=== PATIENT | male | born 1940 | race Two or more races ===

== ENCOUNTER 2021-07-16 16:06 | Inpatient (IN) | payer MEDICAID, OTHER ==
[~2021-07-16] VITALS: Ht 165.1 cm; Wt 56.4 kg
[2021-07-16] MEDS ORDERED: ADENOSINE 6 MG/2 ML INJ IV ONE (16:45)
[2021-07-16] MEDS ORDERED: SODIUM CHLORIDE 0.9% 1,000 ML IV ONE ×2 (16:45→22:00)
[2021-07-16] MEDS ORDERED: GLIP10TA9 PO (16:46)
[2021-07-16] MEDS ORDERED: ATOR40TA52 PO (16:46)
[2021-07-16] MEDS ORDERED: GABA100C9 PO (16:46)
[2021-07-16] MEDS ORDERED: METO25TA5 PO (16:46)
[2021-07-16] MEDS ORDERED: LISI20TA28 PO (16:46)
[2021-07-16] MEDS ORDERED: LORA-622 PO (16:46)
[2021-07-16] MEDS ORDERED: METF-372 PO (16:46)
[2021-07-16] MEDS ORDERED: CLOP75TA28 PO (16:46)
[2021-07-16 17:05] LABS: Basophils # (auto) 0 10 ^3/uL (0-0.2); Basophils % (auto) 1.1 % (0.0-2.0); Eosinophils # (auto) 0 10 ^3/uL (0-0.8); Hematocrit 48.6 % (41.0-53.0); Hemoglobin 16.7 g/dL (13.5-17.5); Lymphocytes # (auto) 1.3 10 ^3/uL (0.4-5.4); Lymphocytes % (auto) 34.8 % (10.0-50.0); Mean Corpuscular Hemoglobin 30.8 pg (28.0-32.0); Mean Corpuscular Hgb Conc. 34.3 g/dL (32.0-36.0); Mean Corpuscular Volume 89.8 fL (80.0-100.0); Monocytes # (auto) 0.4 10 ^3/uL (0-1.3); Neutrophils % (auto) 54.1 % (37.0-80.0); Nucleated Red Blood Cells % 0.4 %; Red Blood Cells 5.41 10^6/uL (4.5-5.90); Red Cell Distribution Width 13.9 % (11.8-14.3); White Blood Cell 3.8 10^3/uL (4.4-10.8)
[2021-07-16 17:06] LABS: Albumin 3.3 g/dL (3.4-5.0); BUN/Creatinine Ratio 21.2; Calcium 8.6 mg/dL (8.5-10.1); Magnesium 2.1 mg/dL (1.6-2.6)
[2021-07-16 17:09] LABS: Bilirubin, Total 0.8 mg/dL (0.2-1.0); Total Protein 7.3 g/dL (6.4-8.2)
[2021-07-16 17:13] LABS: Potassium 5.6 mmol/L (3.5-5.1)
[2021-07-16] MEDS ORDERED: InsuLIN REG 1unit/0.01ml Soln (100units/ml) IV ONE (22:00)
[2021-07-16] MEDS ORDERED: ALBUTEROL SULF 2.5 MG/0.5ML(0.5%) NEB SOLN NEB ONE (22:00)
[2021-07-16] MEDS ORDERED: HYDROcodone-ACET 5/325MG TAB PO PRN (22:00)
[2021-07-16] MEDS ORDERED: ACETAMINOPHEN 325 MG TAB PO PRN (22:00)
[2021-07-16] MEDS ORDERED: hydrALAZINE HCL 10 MG TAB PO PRN (22:00)
[2021-07-16] MEDS ORDERED: DEXTROSE (50%) 50ML SYRG IV ONE (22:00)
[2021-07-16] MEDS ORDERED: SODIUM BICARBONATE 8.4% INJ 50ML SYRINGE IV ONE (22:00)
[2021-07-16] MEDS: ASCORBIC ACID 500 MG TAB PO SCH (22:00)
[2021-07-16] MEDS ORDERED: ONDANSETRON HCL 4 MG/2 ML VIAL IV PRN (22:00)
[2021-07-16] MEDS ORDERED: ALBUTEROL SULF 2.5 MG/0.5ML(0.5%) NEB SOLN ONE (22:28)
[2021-07-17] MEDS ORDERED: ADENOSINE 6 MG/2 ML INJ IV ONE ×2 (01:15→01:34)
[2021-07-17 02:41] LABS: Potassium 4.3 mmol/L (3.5-5.1)
[2021-07-17] MEDS ORDERED: dilTIAZem 125mg/125ml BAG KIT 125 ML IV SCH (03:15)
[2021-07-17] MEDS ORDERED: dilTIAZem 25 MG/5 ML VIAL IV ONE ×2 (03:15→03:16)
[2021-07-17] MEDS ORDERED: DIGOXIN (250MCG/ML) 2 ML AMPULE IV ONE ×2 (03:15→04:15)
[2021-07-17] MEDS ORDERED: DIGOXIN (250MCG/ML) 2 ML AMPULE ONE (03:16)
[2021-07-17 03:18] LABS: Urine Bacteria NONE SEEN /hpf (None Seen); Urine Blood 1+ /uL (Negative); Urine Specific Gravity 1.021 (1.001-1.035); Urine WBC 2 /hpf (0 - 3)
[2021-07-17] MEDS: cefTRIAXone 1GM/50ML D5W 50 ML IV SCH (04:10)
[2021-07-17] MEDS: AZITHROMYCIN 500MG/ 250ML 250 ML IV SCH (04:27)
[2021-07-17 05:09] LABS: Lactic Acid w/Reflex 3.5 mmol/L (0.4-2.0)
[2021-07-17 05:17] LABS: Calcium 8.1 mg/dL (8.5-10.1); Potassium 4.5 mmol/L (3.5-5.1)
[2021-07-17 05:23] LABS: BUN/Creatinine Ratio 19.5; Bilirubin, Total 0.7 mg/dL (0.2-1.0); Total Protein 7.8 g/dL (6.4-8.2)
[2021-07-17] MEDS ORDERED: ENOXAPARIN SOD 40 MG/0.4 ML SYRINGE SC ONE (08:30)
[2021-07-17] MEDS ORDERED: REMDESIVIR PER PHARMACY 0 ML IV SCH (08:30)
[2021-07-17] MEDS ORDERED: ENOXAPARIN SOD 40 MG/0.4 ML SYRINGE SC SCH (10:00)
[2021-07-17] MEDS: ZINC SULFATE 220mg CAP or TAB PO SCH (10:22)
[2021-07-17] MEDS: DexAMETHasone SOD PHOS 10MG/1ML VIAL INJ IV SCH (10:22)
[2021-07-17] MEDS: dilTIAZem 120MG ER CAP PO SCH (10:22)
[2021-07-17] MEDS: CHOLECALCIFEROL (VITD3) 2,000 UNIT CAP/TAB PO SCH (10:23)
[2021-07-17] MEDS: FAMOTIDINE 20 MG TAB PO SCH (10:23)
[2021-07-17] MEDS: DIGOXIN 0.125 MG TAB PO SCH (10:23)
[2021-07-17] MEDS: ASCORBIC ACID 500 MG TAB PO SCH ×2 (10:23→22:29)
[2021-07-17] MEDS ORDERED: REMDESIVIR 200 MG in NS 210ml LOADING DOSE ADULT IV ONE (15:00)
[2021-07-17] MEDS ORDERED: DEXTROSE (50%) 50ML SYRG IV PRN (18:15)
[2021-07-17] MEDS: ACCU-CHEK COMFORT CURVE STRIP VI SCH (18:43)
[2021-07-17] MEDS: InsuLIN REG 1unit/0.01ml Soln (100units/ml) SC SCH (18:43)
[2021-07-17] MEDS: MORPHINE SULFATE INJECTION 2 MG/ML SYRG IV PRN (21:10)
[2021-07-17 22:00] VITALS: BP 135/67
[2021-07-18] MEDS ORDERED: InsuLIN REG 1unit/0.01ml Soln (100units/ml) SC SCH
[2021-07-18] MEDS ORDERED: ACCU-CHEK COMFORT CURVE STRIP VI SCH
[2021-07-18] MEDS: InsuLIN REG 1unit/0.01ml Soln (100units/ml) SC SCH ×4 (00:26→18:28)
[2021-07-18] MEDS: ACCU-CHEK COMFORT CURVE STRIP VI SCH ×4 (00:27→18:26)
[2021-07-18 05:00] VITALS: BP 125/69
[2021-07-18 09:00] VITALS: BP 121/65
[2021-07-18] MEDS: ENOXAPARIN SOD 40 MG/0.4 ML SYRINGE SC SCH (09:47)
[2021-07-18] MEDS: cefTRIAXone 1GM/50ML D5W 50 ML IV SCH (09:47)
[2021-07-18] MEDS: ZINC SULFATE 220mg CAP or TAB PO SCH (09:48)
[2021-07-18] MEDS: DexAMETHasone SOD PHOS 10MG/1ML VIAL INJ IV SCH (09:48)
[2021-07-18] MEDS: FAMOTIDINE 20 MG TAB PO SCH (09:48)
[2021-07-18] MEDS: CHOLECALCIFEROL (VITD3) 2,000 UNIT CAP/TAB PO SCH (09:48)
[2021-07-18] MEDS: ASCORBIC ACID 500 MG TAB PO SCH ×2 (09:49→22:01)
[2021-07-18] MEDS: dilTIAZem 120MG ER CAP PO SCH (09:50)
[2021-07-18] MEDS: MORPHINE SULFATE INJECTION 2 MG/ML SYRG IV PRN ×2 (09:53→18:40)
[2021-07-18 10:31] LABS: Albumin 2.6 g/dL (3.4-5.0); Calcium 7.9 mg/dL (8.5-10.1); Potassium 4.3 mmol/L (3.5-5.1)
[2021-07-18 10:35] LABS: BUN/Creatinine Ratio 29.8; Bilirubin, Total 0.6 mg/dL (0.2-1.0); Total Protein 6.4 g/dL (6.4-8.2)
[2021-07-18] MEDS: AZITHROMYCIN 500MG/ 250ML 250 ML IV SCH (10:44)
[2021-07-18 12:30] VITALS: BP 104/60
[2021-07-18] MEDS ORDERED: REMDESIVIR 100mg 100 MG in SODIUM CHL 0.9% 230 ML IV SCH (15:00)
[2021-07-18 17:00] VITALS: BP 115/57
[2021-07-18 22:00] VITALS: BP 137/86
[2021-07-18] MEDS: INSULIN LANTUS (GLARGINE) 1 /0.01ml (100units/ml) SC SCH (22:07)
[2021-07-19] MEDS: ACCU-CHEK COMFORT CURVE STRIP VI SCH ×4 (00:20→18:30)
[2021-07-19] MEDS: InsuLIN REG 1unit/0.01ml Soln (100units/ml) SC SCH ×4 (00:23→18:52)
[2021-07-19 05:00] VITALS: BP 142/60
[2021-07-19] MEDS: glipiZIDE 5 MG TAB PO SCH (06:19)
[2021-07-19 07:38] LABS: Potassium 4.2 mmol/L (3.5-5.1)
[2021-07-19 08:02] LABS: Albumin 2.7 g/dL (3.4-5.0); BUN/Creatinine Ratio 41.6; Bilirubin, Total 0.8 mg/dL (0.2-1.0); Total Protein 6.3 g/dL (6.4-8.2)
[2021-07-19 09:00] VITALS: BP 133/61
[2021-07-19] MEDS: cefTRIAXone 1GM/50ML D5W 50 ML IV SCH (11:08)
[2021-07-19] MEDS: DexAMETHasone SOD PHOS 10MG/1ML VIAL INJ IV SCH (11:08)
[2021-07-19] MEDS: CHOLECALCIFEROL (VITD3) 2,000 UNIT CAP/TAB PO SCH (11:09)
[2021-07-19] MEDS: ASCORBIC ACID 500 MG TAB PO SCH ×2 (11:09→22:41)
[2021-07-19] MEDS: ZINC SULFATE 220mg CAP or TAB PO SCH (11:09)
[2021-07-19] MEDS: dilTIAZem 120MG ER CAP PO SCH (11:11)
[2021-07-19] MEDS: ENOXAPARIN SOD 40 MG/0.4 ML SYRINGE SC SCH (11:12)
[2021-07-19] MEDS: FAMOTIDINE 20 MG TAB PO SCH (11:12)
[2021-07-19] MEDS: DIGOXIN 0.125 MG TAB PO SCH (11:12)
[2021-07-19] MEDS: AZITHROMYCIN 500MG/ 250ML 250 ML IV SCH (12:40)
[2021-07-19 13:00] VITALS: BP 145/76
[2021-07-19 14:51] LABS: Lactic Acid w/Reflex 2.6 mmol/L (0.4-2.0)
[2021-07-19 17:00] VITALS: BP 140/73
[2021-07-19 22:00] VITALS: BP 143/72
[2021-07-19] MEDS: INSULIN LANTUS (GLARGINE) 1 /0.01ml (100units/ml) SC SCH (22:42)
[2021-07-20] MEDS: ACCU-CHEK COMFORT CURVE STRIP VI SCH ×5 (00:25→23:35)
[2021-07-20] MEDS: InsuLIN REG 1unit/0.01ml Soln (100units/ml) SC SCH ×5 (00:27→23:35)
[2021-07-20 05:00] VITALS: BP 145/71
[2021-07-20 06:25] LABS: Potassium 3.9 mmol/L (3.5-5.1)
[2021-07-20] MEDS: glipiZIDE 5 MG TAB PO SCH (06:31)
[2021-07-20 06:32] LABS: BUN/Creatinine Ratio 36.3; Bilirubin, Total 0.7 mg/dL (0.2-1.0); Calcium 8.7 mg/dL (8.5-10.1); Total Protein 6.8 g/dL (6.4-8.2)
[2021-07-20 09:00] VITALS: BP 142/59
[2021-07-20] MEDS: FAMOTIDINE 20 MG TAB PO SCH (09:16)
[2021-07-20] MEDS: cefTRIAXone 1GM/50ML D5W 50 ML IV SCH (09:16)
[2021-07-20] MEDS: ENOXAPARIN SOD 40 MG/0.4 ML SYRINGE SC SCH (09:16)
[2021-07-20] MEDS: CHOLECALCIFEROL (VITD3) 2,000 UNIT CAP/TAB PO SCH (09:18)
[2021-07-20] MEDS: ZINC SULFATE 220mg CAP or TAB PO SCH (09:18)
[2021-07-20] MEDS: ASCORBIC ACID 500 MG TAB PO SCH ×2 (09:18→22:38)
[2021-07-20] MEDS: dilTIAZem 120MG ER CAP PO SCH (09:19)
[2021-07-20] MEDS: DexAMETHasone 4 MG TAB PO SCH (09:20)
[2021-07-20] MEDS: AZITHROMYCIN 500MG/ 250ML 250 ML IV SCH (12:04)
[2021-07-20 12:47] VITALS: BP 137/58
[2021-07-20 17:00] VITALS: BP 148/62
[2021-07-20 22:00] VITALS: BP 147/64
[2021-07-20] MEDS: INSULIN LANTUS (GLARGINE) 1 /0.01ml (100units/ml) SC SCH (23:34)
[2021-07-21 05:00] VITALS: BP 133/62
[2021-07-21] MEDS: ACCU-CHEK COMFORT CURVE STRIP VI SCH ×4 (06:22→23:13)
[2021-07-21] MEDS: InsuLIN REG 1unit/0.01ml Soln (100units/ml) SC SCH ×4 (06:23→23:14)
[2021-07-21] MEDS: glipiZIDE 5 MG TAB PO SCH (06:25)
[2021-07-21 06:32] LABS: Basophils # (auto) 0 10 ^3/uL (0-0.2); Basophils % (auto) 0.1 % (0.0-2.0); Eosinophils # (auto) 0 10 ^3/uL (0-0.8); Hematocrit 46.6 % (41.0-53.0); Lymphocytes # (auto) 0.2 10 ^3/uL (0.4-5.4); Lymphocytes % (auto) 3.7 % (10.0-50.0); Mean Corpuscular Hemoglobin 30.5 pg (28.0-32.0); Mean Corpuscular Hgb Conc. 34.4 g/dL (32.0-36.0); Mean Corpuscular Volume 88.7 fL (80.0-100.0); Monocytes # (auto) 0.5 10 ^3/uL (0-1.3); Monocytes % (auto) 8.9 % (0.0-12.0); Neutrophils % (auto) 87.3 % (37.0-80.0); Nucleated Red Blood Cells % 0.2 %; Red Blood Cells 5.25 10^6/uL (4.5-5.90); Red Cell Distribution Width 14.1 % (11.8-14.3); White Blood Cell 5.7 10^3/uL (4.4-10.8)
[2021-07-21 06:49] LABS: Potassium 3.7 mmol/L (3.5-5.1)
[2021-07-21 06:56] LABS: Albumin 2.9 g/dL (3.4-5.0); BUN/Creatinine Ratio 35.8; Bilirubin, Total 0.8 mg/dL (0.2-1.0); Calcium 8.3 mg/dL (8.5-10.1); Magnesium 3.4 mg/dL (1.6-2.6); Total Protein 6.4 g/dL (6.4-8.2)
[2021-07-21 09:00] VITALS: BP 150/84
[2021-07-21] MEDS: ENOXAPARIN SOD 40 MG/0.4 ML SYRINGE SC SCH (09:51)
[2021-07-21] MEDS: cefTRIAXone 1GM/50ML D5W 50 ML IV SCH (09:51)
[2021-07-21] MEDS: dilTIAZem 120MG ER CAP PO SCH (09:53)
[2021-07-21] MEDS: DexAMETHasone 4 MG TAB PO SCH (09:54)
[2021-07-21] MEDS: CHOLECALCIFEROL (VITD3) 2,000 UNIT CAP/TAB PO SCH (09:54)
[2021-07-21] MEDS: ASCORBIC ACID 500 MG TAB PO SCH ×2 (09:54→21:21)
[2021-07-21] MEDS: ZINC SULFATE 220mg CAP or TAB PO SCH (09:54)
[2021-07-21] MEDS: FAMOTIDINE 20 MG TAB PO SCH (09:54)
[2021-07-21] MEDS: AZITHROMYCIN 500MG/ 250ML 250 ML IV SCH (12:30)
[2021-07-21 13:00] VITALS: BP 143/84
[2021-07-21 22:00] VITALS: BP 152/74
[2021-07-21] MEDS: INSULIN LANTUS (GLARGINE) 1 /0.01ml (100units/ml) SC SCH (23:14)
[2021-07-22 05:00] VITALS: BP 149/73
[2021-07-22] MEDS: InsuLIN REG 1unit/0.01ml Soln (100units/ml) SC SCH ×2 (06:41→12:25)
[2021-07-22] MEDS: ACCU-CHEK COMFORT CURVE STRIP VI SCH ×2 (06:41→12:21)
[2021-07-22] MEDS: glipiZIDE 5 MG TAB PO SCH (06:41)
[2021-07-22 09:00] VITALS: BP 118/64
[2021-07-22] MEDS: cefTRIAXone 1GM/50ML D5W 50 ML IV SCH (09:48)
[2021-07-22] MEDS: ASCORBIC ACID 500 MG TAB PO SCH (09:51)
[2021-07-22] MEDS: dilTIAZem 120MG ER CAP PO SCH (09:51)
[2021-07-22] MEDS: ENOXAPARIN SOD 40 MG/0.4 ML SYRINGE SC SCH (09:51)
[2021-07-22] MEDS: DexAMETHasone 4 MG TAB PO SCH (09:52)
[2021-07-22] MEDS: ZINC SULFATE 220mg CAP or TAB PO SCH (09:52)
[2021-07-22] MEDS: FAMOTIDINE 20 MG TAB PO SCH (09:52)
[2021-07-22] MEDS: DIGOXIN 0.125 MG TAB PO SCH (09:56)
[2021-07-22] MEDS: CHOLECALCIFEROL (VITD3) 2,000 UNIT CAP/TAB PO SCH (10:04)
[2021-07-22 12:48] VITALS: BP 152/70
[2021-07-22 14:30] VITALS: BP 152/70
== END 2021-07-22 17:00 | disposition home health service (06) | DRG 137 ==
LOC: ER 16:06 → TELE 21:55 → TELE-EAST 07-17 20:26
PROVIDERS: ADMIT Nurse Practitioner Family; ATTEND Internal Medicine
PROC: XW033E5 Introduction of Remdesivir Anti-infective into Peripheral Vein, Percutaneous Approach, New Technology Group 5 (ICD-10-PCS; principal; 2021-07-17)
DX: U07.1 COVID-19 (principal); J96.01 Acute respiratory failure with hypoxia; J12.82 Pneumonia due to coronavirus disease 2019; G93.41 Metabolic encephalopathy; G93.1 Anoxic brain damage, not elsewhere classified; I47.1 Supraventricular tachycardia; E11.65 Type 2 diabetes mellitus with hyperglycemia; E87.5 Hyperkalemia; I10 Essential (primary) hypertension; J98.11 Atelectasis; N17.9 Acute kidney failure, unspecified; Z79.02 Long term (current) use of antithrombotics/antiplatelets; I25.10 Atherosclerotic heart disease of native coronary artery without angina pectoris; Z82.49 Family history of ischemic heart disease and other diseases of the circulatory system; Z83.3 Family history of diabetes mellitus; Z95.1 Presence of aortocoronary bypass graft; Z79.899 Other long term (current) drug therapy; Z23 Encounter for immunization
CPT/HCPCS: 36415; 36600; 70450; 71045; 80053; 81001; 82607; 82728; 82746; 82805; 82962; 83605; 83735; 84132; 84443; 84484; 85025; 85379; 87040; 87426; 93005; 93306; 94640; 96361; 96365; 96375; 97110; 97530; G0378; J0153; J0696; J1100; J1815

== ENCOUNTER 2021-07-25 09:56 | Inpatient (IN) | payer MEDICAID ==
[~2021-07-25] VITALS: Ht 162.6 cm; Wt 58.0 kg
[~2021-07-25 09:56] MED LIST: ATOR40TA52 PO; CLOP75TA28 PO; GABA100C9 PO; GLIP10TA9 PO; LISI20TA28 PO; LORA-622 PO; METO25TA5 PO
[2021-07-25 11:16] LABS: Basophils # (auto) 0 10 ^3/uL (0-0.2); Basophils % (auto) 0.1 % (0.0-2.0); Eosinophils # (auto) 0 10 ^3/uL (0-0.8); Eosinophils % (auto) 0.2 % (0.0-7.0); Hematocrit 50.1 % (41.0-53.0); Hemoglobin 17.1 g/dL (13.5-17.5); Lymphocytes # (auto) 0.5 10 ^3/uL (0.4-5.4); Mean Corpuscular Hemoglobin 31.7 pg (28.0-32.0); Mean Corpuscular Hgb Conc. 34.1 g/dL (32.0-36.0); Mean Corpuscular Volume 92.9 fL (80.0-100.0); Monocytes # (auto) 0.6 10 ^3/uL (0-1.3); Monocytes % (auto) 7.8 % (0.0-12.0); Neutrophils # (auto) 6.6 10 ^3/uL (1.6-8.6); Neutrophils % (auto) 84.9 % (37.0-80.0); Nucleated Red Blood Cells % 0.2 %; Red Blood Cells 5.39 10^6/uL (4.5-5.90); Red Cell Distribution Width 13.5 % (11.8-14.3); White Blood Cell 7.8 10^3/uL (4.4-10.8)
[2021-07-25 11:32] LABS: Potassium 5.1 mmol/L (3.5-5.1)
[2021-07-25 11:36] LABS: Albumin 2.6 g/dL (3.4-5.0); BUN/Creatinine Ratio 21.2; Calcium 8.8 mg/dL (8.5-10.1); Magnesium 2.6 mg/dL (1.6-2.6)
[2021-07-25 11:41] LABS: Bilirubin, Total 1.2 mg/dL (0.2-1.0); Lactic Acid w/Reflex 3.6 mmol/L (0.4-2.0)
[2021-07-25 14:09] LABS: Urine Bacteria NONE SEEN /hpf (None Seen); Urine Blood Negative /uL (Negative); Urine Hyaline Cast FEW /lpf (0 - 2); Urine Specific Gravity 1.023 (1.001-1.035); Urine WBC 2 /hpf (0 - 3)
[2021-07-25] MEDS ORDERED: HYDROcodone-ACET 5/325MG TAB PO PRN (16:15)
[2021-07-25] MEDS ORDERED: ACETAMINOPHEN 325 MG TAB PO PRN ×2 (16:15)
[2021-07-25] MEDS ORDERED: ONDANSETRON HCL 4 MG/2 ML VIAL IV PRN (16:15)
[2021-07-25] MEDS ORDERED: DIGOXIN (250MCG/ML) 2 ML AMPULE IV PRN (16:15)
[2021-07-25] MEDS ORDERED: MORPHINE SULFATE INJECTION 2 MG/ML SYRG IV PRN (16:15)
[2021-07-25] MEDS ORDERED: NITROGLYCERIN 0.4 MG SL TAB SL PRN (16:15)
[2021-07-25] MEDS: ENOXAPARIN SOD 60 MG/0.6 ML SYRINGE SC SCH (17:00)
[2021-07-25] MEDS ORDERED: BUDESONIDE (INHALATION) 0.5 MG/2 ML NEB NEB SCH (22:00)
[2021-07-25] MEDS: ATORVASTATIN 20 MG TAB PO SCH (22:32)
[2021-07-25] MEDS: DOXYCYCLINE 100 MG TAB/CAP PO SCH (22:33)
[2021-07-25] MEDS: METOPROLOL TARTRATE 25 MG TAB PO SCH (22:33)
[2021-07-26 00:03] VITALS: BP 141/90
[2021-07-26] MEDS ORDERED: DEXTROSE (50%) 50ML SYRG IV PRN (00:45)
[2021-07-26] MEDS ORDERED: InsuLIN REG 1unit/0.01ml Soln (100units/ml) SC ONE (01:45)
[2021-07-26 05:00] VITALS: BP 140/74
[2021-07-26] MEDS: ENOXAPARIN SOD 60 MG/0.6 ML SYRINGE SC SCH ×2 (05:00→17:00)
[2021-07-26] MEDS: ACCU-CHEK COMFORT CURVE STRIP VI SCH ×4 (06:18→22:05)
[2021-07-26] MEDS: InsuLIN REG 1unit/0.01ml Soln (100units/ml) SC SCH ×5 (06:20→22:28)
[2021-07-26 06:58] LABS: Basophils # (auto) 0 10 ^3/uL (0-0.2); Eosinophils # (auto) 0 10 ^3/uL (0-0.8); Hematocrit 46.9 % (41.0-53.0); Hemoglobin 16.4 g/dL (13.5-17.5); Lymphocytes # (auto) 0.6 10 ^3/uL (0.4-5.4); Lymphocytes % (auto) 13.1 % (10.0-50.0); Mean Corpuscular Hemoglobin 32.3 pg (28.0-32.0); Mean Corpuscular Volume 92.3 fL (80.0-100.0); Monocytes # (auto) 0.5 10 ^3/uL (0-1.3); Monocytes % (auto) 10.5 % (0.0-12.0); Neutrophils # (auto) 3.8 10 ^3/uL (1.6-8.6); Neutrophils % (auto) 76.4 % (37.0-80.0); Nucleated Red Blood Cells % 0.4 %; Red Blood Cells 5.08 10^6/uL (4.5-5.90); Red Cell Distribution Width 13.8 % (11.8-14.3); White Blood Cell 4.9 10^3/uL (4.4-10.8)
[2021-07-26 07:08] LABS: INR 1.03 (0.9-1.15); Partial Thromboplastin Time 29.6 sec (23.6-33.0)
[2021-07-26 07:21] LABS: Calcium 8.4 mg/dL (8.5-10.1); Potassium 4.5 mmol/L (3.5-5.1)
[2021-07-26 07:32] LABS: BUN/Creatinine Ratio 34.1
[2021-07-26 09:00] VITALS: BP 121/77
[2021-07-26] MEDS: BUDESONIDE (INHALATION) 180 MCG IH IN SCH ×2 (10:00→19:53)
[2021-07-26] MEDS: METOPROLOL TARTRATE 25 MG TAB PO SCH ×2 (12:07→22:00)
[2021-07-26] MEDS: ASPirin 81 mg TAB PO SCH (12:07)
[2021-07-26] MEDS: FAMOTIDINE 20 MG TAB PO SCH (12:09)
[2021-07-26] MEDS: DOXYCYCLINE 100 MG TAB/CAP PO SCH ×2 (12:09→22:26)
[2021-07-26 13:00] VITALS: BP 138/81
[2021-07-26 17:00] VITALS: BP 107/64
[2021-07-26 22:03] VITALS: BP 100/58
[2021-07-26] MEDS: ATORVASTATIN 20 MG TAB PO SCH (22:26)
[2021-07-26] MEDS: AMIODARONE HCL 200 MG TAB PO SCH (22:26)
[2021-07-27 04:43] VITALS: BP 107/53
[2021-07-27] MEDS: ENOXAPARIN SOD 60 MG/0.6 ML SYRINGE SC SCH ×2 (05:00→17:00)
[2021-07-27] MEDS: ACCU-CHEK COMFORT CURVE STRIP VI SCH ×4 (06:20→22:36)
[2021-07-27] MEDS: InsuLIN REG 1unit/0.01ml Soln (100units/ml) SC SCH ×4 (06:22→22:37)
[2021-07-27 09:00] VITALS: BP 132/65
[2021-07-27] MEDS: BUDESONIDE (INHALATION) 180 MCG IH IN SCH ×2 (10:04→19:59)
[2021-07-27] MEDS: DOXYCYCLINE 100 MG TAB/CAP PO SCH ×2 (11:08→22:35)
[2021-07-27] MEDS: AMIODARONE HCL 200 MG TAB PO SCH ×2 (11:08→22:33)
[2021-07-27] MEDS: ASPirin 81 mg TAB PO SCH (11:08)
[2021-07-27] MEDS: FAMOTIDINE 20 MG TAB PO SCH (11:08)
[2021-07-27] MEDS: METOPROLOL TARTRATE 25 MG TAB PO SCH ×2 (11:08→22:35)
[2021-07-27 13:00] VITALS: BP 118/75
[2021-07-27] MEDS: D5W/LACTATED RINGERS 1,000 ML IV SCH (15:04)
[2021-07-27 17:00] VITALS: BP 118/63
[2021-07-27 22:00] VITALS: BP 124/66
[2021-07-27] MEDS: ATORVASTATIN 20 MG TAB PO SCH (22:34)
[2021-07-28 04:39] VITALS: BP 110/65
[2021-07-28] MEDS: ENOXAPARIN SOD 60 MG/0.6 ML SYRINGE SC SCH ×2 (04:44→17:00)
[2021-07-28] MEDS: ACCU-CHEK COMFORT CURVE STRIP VI SCH ×4 (06:21→22:05)
[2021-07-28] MEDS: InsuLIN REG 1unit/0.01ml Soln (100units/ml) SC SCH ×4 (06:31→22:06)
[2021-07-28] MEDS: BUDESONIDE (INHALATION) 180 MCG IH IN SCH ×2 (07:51→22:00)
[2021-07-28] MEDS: D5W/LACTATED RINGERS 1,000 ML IV SCH (08:45)
[2021-07-28 09:00] VITALS: BP 123/60
[2021-07-28] MEDS: AMIODARONE HCL 200 MG TAB PO SCH (10:08)
[2021-07-28] MEDS: ASPirin 81 mg TAB PO SCH (10:08)
[2021-07-28] MEDS: METOPROLOL TARTRATE 25 MG TAB PO SCH ×2 (10:08→21:49)
[2021-07-28] MEDS: FAMOTIDINE 20 MG TAB PO SCH (10:09)
[2021-07-28] MEDS: DOXYCYCLINE 100 MG TAB/CAP PO SCH ×2 (10:09→22:05)
[2021-07-28 13:00] VITALS: BP 121/61
[2021-07-28 16:58] VITALS: BP 115/54
[2021-07-28 22:00] VITALS: BP 104/65
[2021-07-28] MEDS: ATORVASTATIN 20 MG TAB PO SCH (22:05)
[2021-07-29] MEDS: D5W/LACTATED RINGERS 1,000 ML IV SCH ×2 (04:45→17:30)
[2021-07-29] MEDS: ENOXAPARIN SOD 60 MG/0.6 ML SYRINGE SC SCH ×2 (05:00→17:00)
[2021-07-29] MEDS: ACCU-CHEK COMFORT CURVE STRIP VI SCH ×4 (05:31→22:56)
[2021-07-29] MEDS: InsuLIN REG 1unit/0.01ml Soln (100units/ml) SC SCH ×4 (05:32→22:00)
[2021-07-29 08:35] VITALS: BP 131/63
[2021-07-29] MEDS: DOXYCYCLINE 100 MG TAB/CAP PO SCH ×2 (10:00→22:56)
[2021-07-29] MEDS: ASPirin 81 mg TAB PO SCH (10:00)
[2021-07-29] MEDS: BUDESONIDE (INHALATION) 180 MCG IH IN SCH ×2 (10:00→17:54)
[2021-07-29] MEDS: FAMOTIDINE 20 MG TAB PO SCH (10:00)
[2021-07-29] MEDS: METOPROLOL TARTRATE 25 MG TAB PO SCH ×2 (10:00→22:56)
[2021-07-29] MEDS ORDERED: AMIODARONE HCL 200 MG TAB PO SCH (10:00)
[2021-07-29 13:00] VITALS: BP 108/66
[2021-07-29 17:00] VITALS: BP 110/71
[2021-07-29] MEDS: ATORVASTATIN 20 MG TAB PO SCH (22:55)
[2021-07-30] MEDS: ENOXAPARIN SOD 60 MG/0.6 ML SYRINGE SC SCH (05:00)
[2021-07-30] MEDS: BUDESONIDE (INHALATION) 180 MCG IH IN SCH (06:12)
[2021-07-30] MEDS: InsuLIN REG 1unit/0.01ml Soln (100units/ml) SC SCH (07:00)
[2021-07-30] MEDS: ACCU-CHEK COMFORT CURVE STRIP VI SCH (07:19)
[2021-07-30 09:00] VITALS: BP 137/62
[2021-07-30] MEDS: ASPirin 81 mg TAB PO SCH (10:45)
[2021-07-30] MEDS ORDERED: DEXTROSE (50%) 50ML SYRG IV PRN (10:45)
[2021-07-30] MEDS: METOPROLOL TARTRATE 25 MG TAB PO SCH (10:46)
[2021-07-30] MEDS: FAMOTIDINE 20 MG TAB PO SCH (10:46)
[2021-07-30] MEDS: DOXYCYCLINE 100 MG TAB/CAP PO SCH (10:46)
[2021-07-30] MEDS ORDERED: InsuLIN REG 1unit/0.01ml Soln (100units/ml) SC SCH (11:30)
[2021-07-30] MEDS ORDERED: ACCU-CHEK COMFORT CURVE STRIP VI SCH (11:30)
[2021-07-30 13:00] VITALS: BP 125/63
[2021-07-30 14:43] VITALS: BP 125/63
== END 2021-07-30 16:20 | DRG 137 ==
LOC: ER 09:56 → EDBD 09:56 → TELE 16:14 → TELE-EAST 21:35
PROVIDERS: ADMIT Hospitalist; ATTEND Hospitalist
DX: U07.1 COVID-19 (principal); J12.82 Pneumonia due to coronavirus disease 2019; I21.A1 Myocardial infarction type 2; D69.6 Thrombocytopenia, unspecified; N17.9 Acute kidney failure, unspecified; I47.1 Supraventricular tachycardia; E11.51 Type 2 diabetes mellitus with diabetic peripheral angiopathy without gangrene; I25.10 Atherosclerotic heart disease of native coronary artery without angina pectoris; E11.65 Type 2 diabetes mellitus with hyperglycemia; E78.5 Hyperlipidemia, unspecified; I10 Essential (primary) hypertension; Z82.49 Family history of ischemic heart disease and other diseases of the circulatory system; Z83.3 Family history of diabetes mellitus; Z95.1 Presence of aortocoronary bypass graft
CPT/HCPCS: 36415; 70450; 71045; 80048; 80053; 81001; 82962; 83605; 83735; 84484; 85025; 85610; 85730; 87040; 87081; 87426; 93005; 93925; 94640; 96372; 97110; 97163; 97530; G0378; J1815

== ENCOUNTER 2021-09-10 02:37 | Inpatient (IN) | payer MEDICAID ==
[~2021-09-10] VITALS: Ht 160 cm; Wt 55.0 kg
[~2021-09-10 02:37] MED LIST changes: -CLOP75TA28 PO; -GABA100C9 PO; -LISI20TA28 PO; -LORA-622 PO
[2021-09-10] MEDS ORDERED: DEXTROSE 10% 1,000 ML IV ONE ×2 (03:00→07:15)
[2021-09-10 04:04] LABS: Basophils # (auto) 0 10 ^3/uL (0-0.2); Basophils % (auto) 0.3 % (0.0-2.0); Eosinophils # (auto) 0 10 ^3/uL (0-0.8); Eosinophils % (auto) 0.4 % (0.0-7.0); Hematocrit 40.3 % (41.0-53.0); Hemoglobin 14.2 g/dL (13.5-17.5); Lymphocytes # (auto) 0.6 10 ^3/uL (0.4-5.4); Lymphocytes % (auto) 6.2 % (10.0-50.0); Mean Corpuscular Hemoglobin 32.3 pg (28.0-32.0); Mean Corpuscular Hgb Conc. 35.3 g/dL (32.0-36.0); Mean Corpuscular Volume 91.4 fL (80.0-100.0); Monocytes % (auto) 9.2 % (0.0-12.0); Neutrophils # (auto) 8.7 10 ^3/uL (1.6-8.6); Neutrophils % (auto) 83.9 % (37.0-80.0); Red Blood Cells 4.41 10^6/uL (4.5-5.90); Red Cell Distribution Width 16.1 % (11.8-14.3); White Blood Cell 10.4 10^3/uL (4.4-10.8)
[2021-09-10 04:22] LABS: Albumin 3.3 g/dL (3.4-5.0); BUN/Creatinine Ratio 23.5; Calcium 8.7 mg/dL (8.5-10.1); Potassium 4.5 mmol/L (3.5-5.1)
[2021-09-10 04:25] LABS: Bilirubin, Total 0.5 mg/dL (0.2-1.0); Total Protein 7.3 g/dL (6.4-8.2)
[2021-09-10] MEDS ORDERED: ONDANSETRON HCL 4 MG/2 ML VIAL IV PRN (07:15)
[2021-09-10] MEDS ORDERED: ACETAMINOPHEN 325 MG TAB PO PRN (07:15)
[2021-09-10] MEDS ORDERED: MORPHINE SULFATE INJECTION 2 MG/ML SYRG IV PRN (07:15)
[2021-09-10] MEDS ORDERED: HYDROcodone-ACET 5/325MG TAB PO PRN (07:15)
[2021-09-10] MEDS: FAMOTIDINE 20 MG TAB PO SCH (10:41)
[2021-09-10] MEDS: ASPirin-EC 81 mg tab PO SCH (10:41)
[2021-09-10] MEDS: D5W/SOD CHL 0.45% 1,000 ML IV SCH (14:48)
[2021-09-10 17:00] VITALS: BP 109/29
[2021-09-10] MEDS ORDERED: GABA100C9 PO (17:11)
[2021-09-10] MEDS ORDERED: PIO30T PO (17:11)
[2021-09-10] MEDS ORDERED: SITA100T7 PO (17:11)
[2021-09-10] MEDS ORDERED: METF-929 PO (17:11)
[2021-09-10] MEDS ORDERED: ATOR20TA50 PO (17:11)
[2021-09-10 22:00] VITALS: BP 126/69
[2021-09-10] MEDS: ATORVASTATIN 20 MG TAB PO SCH (22:30)
[2021-09-11] VITALS (7 sets, daily range): BP systolic 93–126; BP diastolic 45–71
[2021-09-11 05:54] LABS: Calcium 8.1 mg/dL (8.5-10.1); Potassium 4.2 mmol/L (3.5-5.1)
[2021-09-11 05:56] LABS: BUN/Creatinine Ratio 22.7
[2021-09-11] MEDS: D5W/SOD CHL 0.45% 1,000 ML IV SCH (09:00)
[2021-09-11] MEDS: FAMOTIDINE 20 MG TAB PO SCH (10:11)
[2021-09-11] MEDS: ASPirin-EC 81 mg tab PO SCH (10:11)
[2021-09-11] MEDS ORDERED: DEXTROSE (50%) 50ML SYRG IV PRN ×2 (16:15→22:45)
[2021-09-11] MEDS: ACCU-CHEK COMFORT CURVE STRIP VI SCH ×2 (17:50→22:40)
[2021-09-11] MEDS: SODIUM CHLORIDE 0.9% 1,000 ML IV SCH (18:00)
[2021-09-11 19:10] LABS: Urine Bacteria FEW /hpf (None Seen); Urine Blood Negative /uL (Negative); Urine Mucus FEW (None Seen); Urine Specific Gravity 1.002 (1.001-1.035); Urine WBC 99 /hpf (0 - 3); Urine WBC Clumps PRESENT /hpf (None Seen)
[2021-09-11] MEDS ORDERED: FAMOTIDINE 20 MG TAB PO SCH (22:00)
[2021-09-11] MEDS: ATORVASTATIN 20 MG TAB PO SCH (22:40)
[2021-09-11] MEDS ORDERED: InsuLIN REG 1unit/0.01ml Soln (100units/ml) SC ONE (23:45)
[2021-09-12 04:28] VITALS: BP 107/46
[2021-09-12] MEDS ORDERED: InsuLIN REG 1unit/0.01ml Soln (100units/ml) SC SCH ×3 (07:00→22:00)
[2021-09-12] MEDS ORDERED: ACCU-CHEK COMFORT CURVE STRIP VI SCH ×2 (07:00→11:30)
[2021-09-12] MEDS: SODIUM CHLORIDE 0.9% 1,000 ML IV SCH (08:33)
[2021-09-12 08:37] VITALS: BP 118/55
[2021-09-12] MEDS: ASPirin-EC 81 mg tab PO SCH (10:21)
[2021-09-12] MEDS ORDERED: levoFLOXacin 500MG 100 ML IV ONE (11:00)
[2021-09-12] MEDS ORDERED: DEXTROSE (50%) 50ML SYRG IV PRN (11:00)
[2021-09-12] MEDS ORDERED: LEVO-28 PO ×2 (11:35→11:36)
[2021-09-12 11:42] VITALS: BP 118/55
[2021-09-12 12:58] VITALS: BP 118/62
[2021-09-12] MEDS ORDERED: GABAPENTIN 100 MG CAP PO SCH (14:00)
[2021-09-12] MEDS ORDERED: metFORMIN HYDROCHLORIDE 500 MG TAB PO SCH (18:00)
[2021-09-12] MEDS ORDERED: ATORVASTATIN 20 MG TAB PO SCH ×2 (18:00→22:00)
[2021-09-12] MEDS ORDERED: METOPROLOL TARTRATE 25 MG TAB PO SCH (22:00)
[2021-09-13] MEDS ORDERED: PIOGLITAZONE HYDROCHLORIDE 30 MG TAB PO SCH (07:00)
[2021-09-13] MEDS ORDERED: GABAPENTIN 100 MG CAP PO SCH (10:00)
[2021-09-13] MEDS ORDERED: levoFLOXacin 500MG 100 ML IV SCH (10:00)
== END 2021-09-12 14:03 | disposition home health service (06) | DRG 463 ==
LOC: EDBD 02:37 → ER 02:37 → OVERFLOW 07:03 → TELE-CENTR 16:19
PROVIDERS: ADMIT Nurse Practitioner Family; ATTEND Hospitalist
DX: N39.0 Urinary tract infection, site not specified (principal); G93.41 Metabolic encephalopathy; E11.649 Type 2 diabetes mellitus with hypoglycemia without coma; T38.3X5A Adverse effect of insulin and oral hypoglycemic [antidiabetic] drugs, initial encounter; I10 Essential (primary) hypertension; I25.10 Atherosclerotic heart disease of native coronary artery without angina pectoris; Z20.822 Contact with and (suspected) exposure to COVID-19; Z79.84 Long term (current) use of oral hypoglycemic drugs; Z79.899 Other long term (current) drug therapy; Z82.49 Family history of ischemic heart disease and other diseases of the circulatory system; Z83.3 Family history of diabetes mellitus; Y92.89 Other specified places as the place of occurrence of the external cause
CPT/HCPCS: 36415; 70450; 71045; 80048; 80053; 81001; 82962; 83036; 85025; 87086; 95819; 96360; 96361; 97116; 97163; 97530; G0378; J1815; J1956

== ENCOUNTER 2021-09-21 20:48 | Inpatient (IN) | payer MEDICAID ==
[~2021-09-21] VITALS: Ht 160 cm; Wt 57.0 kg
[~2021-09-21 20:48] MED LIST changes: +ATOR20TA50 PO; -ATOR40TA52 PO; +GABA100C9 PO; -GLIP10TA9 PO; +LEVO-28 PO; +METF-929 PO; +PIO30T PO
[2021-09-22 02:40] LABS: INR 1.18 (0.9-1.15); Partial Thromboplastin Time 28.6 sec (23.6-33.0)
[2021-09-22 02:44] LABS: Albumin 2.8 g/dL (3.4-5.0); BUN/Creatinine Ratio 18.8; Calcium 8.1 mg/dL (8.5-10.1); Potassium 3.8 mmol/L (3.5-5.1)
[2021-09-22 02:49] LABS: Bilirubin, Total 0.6 mg/dL (0.2-1.0)
[2021-09-22] MEDS ORDERED: IOHEXOL 350 MG/ML 100ML IJ ONE (02:56)
[2021-09-22 04:29] LABS: Basophils # (auto) 0.1 10 ^3/uL (0-0.2); Basophils % (auto) 0.7 % (0.0-2.0); Eosinophils # (auto) 0 10 ^3/uL (0-0.8); Eosinophils % (auto) 0.4 % (0.0-7.0); Hematocrit 32.3 % (41.0-53.0); Hemoglobin 11.4 g/dL (13.5-17.5); Lymphocytes % (auto) 9.9 % (10.0-50.0); Mean Corpuscular Hgb Conc. 35.1 g/dL (32.0-36.0); Monocytes # (auto) 0.9 10 ^3/uL (0-1.3); Monocytes % (auto) 8.9 % (0.0-12.0); Neutrophils # (auto) 8.5 10 ^3/uL (1.6-8.6); Neutrophils % (auto) 80.1 % (37.0-80.0); Nucleated Red Blood Cells % 0.1 %; Red Blood Cells 3.55 10^6/uL (4.5-5.90); Red Cell Distribution Width 15.8 % (11.8-14.3); White Blood Cell 10.5 10^3/uL (4.4-10.8)
[2021-09-22] MEDS ORDERED: dilTIAZem 25 MG/5 ML VIAL IV ONE ×2 (07:37→07:45)
[2021-09-22] MEDS ORDERED: SODIUM CHLORIDE 0.9% 500 ML IV ONE (07:45)
[2021-09-22] MEDS ORDERED: HYDROcodone-ACET 5/325MG TAB PO PRN (14:15)
[2021-09-22] MEDS ORDERED: MORPHINE SULFATE 4 MG/ML SYR/VIAL IV PRN (14:15)
[2021-09-22] MEDS ORDERED: ONDANSETRON HCL 4 MG/2 ML VIAL IV PRN (14:15)
[2021-09-22] MEDS ORDERED: ACETAMINOPHEN 325 MG TAB PO PRN ×2 (14:15)
[2021-09-22] MEDS ORDERED: SODIUM CHLORIDE 0.9% 1,000 ML IV ONE (14:45)
[2021-09-22] MEDS ORDERED: METF-372 PO (16:18)
[2021-09-22] MEDS ORDERED: DEXTROSE (50%) 50ML SYRG IV PRN (16:30)
[2021-09-22 16:39] VITALS: BP 122/63
[2021-09-22] MEDS ORDERED: FUROSEMIDE 20 MG/2 ML VIAL IV ONE (16:45)
[2021-09-22] MEDS ORDERED: MAGNESIUM SULFATE 1GM/100ML 100 ML IV ONE (16:45)
[2021-09-22] MEDS ORDERED: metroNIDAZOLE 500MG/100ML 100 ML IV ONE (16:45)
[2021-09-22] MEDS: InsuLIN REG 1unit/0.01ml Soln (100units/ml) SC SCH ×2 (16:53→21:37)
[2021-09-22] MEDS: SODIUM CHLORIDE 0.9% 1,000 ML IV SCH (17:38)
[2021-09-22] MEDS: ACCU-CHEK COMFORT CURVE STRIP VI SCH ×2 (17:39→21:38)
[2021-09-22] MEDS: ATORVASTATIN 20 MG TAB PO SCH (21:34)
[2021-09-22] MEDS: METOPROLOL TARTRATE 25 MG TAB PO SCH (21:37)
[2021-09-22 22:00] VITALS: BP 102/48
[2021-09-22] MEDS: metroNIDAZOLE 500MG/100ML 100 ML IV SCH (22:49)
[2021-09-23 04:34] VITALS: BP 119/71
[2021-09-23] MEDS: SODIUM CHLORIDE 0.9% 1,000 ML IV SCH (06:07)
[2021-09-23] MEDS: metroNIDAZOLE 500MG/100ML 100 ML IV SCH ×2 (06:17→14:48)
[2021-09-23] MEDS: GABAPENTIN 100 MG CAP PO SCH (06:50)
[2021-09-23] MEDS: ACCU-CHEK COMFORT CURVE STRIP VI SCH ×4 (06:51→22:11)
[2021-09-23] MEDS: InsuLIN REG 1unit/0.01ml Soln (100units/ml) SC SCH ×4 (06:51→22:17)
[2021-09-23] MEDS ORDERED: PIOGLITAZONE HYDROCHLORIDE 30 MG TAB PO SCH (07:00)
[2021-09-23 09:00] VITALS: BP 127/63
[2021-09-23 09:20] LABS: Basophils # (auto) 0.1 10 ^3/uL (0-0.2); Basophils % (auto) 0.8 % (0.0-2.0); Eosinophils # (auto) 0.2 10 ^3/uL (0-0.8); Eosinophils % (auto) 3.1 % (0.0-7.0); Hematocrit 32.4 % (41.0-53.0); Hemoglobin 11.1 g/dL (13.5-17.5); Lymphocytes % (auto) 13.2 % (10.0-50.0); Mean Corpuscular Hemoglobin 31.7 pg (28.0-32.0); Mean Corpuscular Hgb Conc. 34.4 g/dL (32.0-36.0); Mean Corpuscular Volume 92.3 fL (80.0-100.0); Monocytes # (auto) 0.6 10 ^3/uL (0-1.3); Monocytes % (auto) 8.3 % (0.0-12.0); Neutrophils # (auto) 5.5 10 ^3/uL (1.6-8.6); Neutrophils % (auto) 74.6 % (37.0-80.0); Red Blood Cells 3.51 10^6/uL (4.5-5.90); Red Cell Distribution Width 16.1 % (11.8-14.3); White Blood Cell 7.3 10^3/uL (4.4-10.8)
[2021-09-23 09:36] LABS: Albumin 2.6 g/dL (3.4-5.0); Calcium 7.6 mg/dL (8.5-10.1); Magnesium 1.4 mg/dL (1.6-2.6); Potassium 3.6 mmol/L (3.5-5.1)
[2021-09-23 09:40] LABS: BUN/Creatinine Ratio 16.1; Bilirubin, Total 0.7 mg/dL (0.2-1.0); Total Protein 5.4 g/dL (6.4-8.2)
[2021-09-23] MEDS ORDERED: ONDANSETRON HCL 4 MG/2 ML VIAL IV PRN ×2 (09:45→10:15)
[2021-09-23] MEDS: POTASSIUM CHLORIDE 8 MEQ TAB PO SCH (09:49)
[2021-09-23] MEDS: ENOXAPARIN SOD 40 MG/0.4 ML SYRINGE SC SCH (09:49)
[2021-09-23] MEDS: METOPROLOL TARTRATE 25 MG TAB PO SCH ×2 (09:50→22:11)
[2021-09-23] MEDS ORDERED: levoFLOXacin 750MG 150 ML IV SCH (10:00)
[2021-09-23] MEDS ORDERED: PANTOPRAZOLE 40 MG/10 ML VIAL INJ IV SCH (10:00)
[2021-09-23] MEDS ORDERED: ENOXAPARIN SOD 40 MG/0.4 ML SYRINGE SC SCH (10:00)
[2021-09-23] MEDS ORDERED: cefTRIAXone 1GM/50ML D5W 50 ML IV SCH (10:00)
[2021-09-23] MEDS ORDERED: FUROSEMIDE 20 MG/2 ML VIAL IV SCH (10:00)
[2021-09-23] MEDS ORDERED: DEXTROSE (50%) 50ML SYRG IV PRN (10:15)
[2021-09-23] MEDS: ASPirin-EC 81 mg tab PO SCH (11:03)
[2021-09-23] MEDS: LACTATED RINGER'S 1,000 ML IV SCH ×2 (11:04→22:20)
[2021-09-23] MEDS: HYDROcodone-ACET 5/325MG TAB PO PRN (11:06)
[2021-09-23] MEDS ORDERED: guaiFENesin-DM 100/10mg/5ml SYR PO PRN (12:15)
[2021-09-23] MEDS: INSULIN NPH Isophane (HUMAN) 1unit/0.01ml Susp(100units/ml) SC SCH ×2 (12:21→17:11)
[2021-09-23 12:59] VITALS: BP 101/57
[2021-09-23] MEDS: MAGNESIUM SULFATE 1GM/100ML 100 ML IV SCH ×5 (13:42→18:01)
[2021-09-23 17:00] VITALS: BP 101/59
[2021-09-23 21:30] VITALS: BP 126/59
[2021-09-23] MEDS: CIPROFLOXACIN HCL 500 MG TAB PO SCH (22:10)
[2021-09-23] MEDS: ATORVASTATIN 20 MG TAB PO SCH (22:10)
[2021-09-24 05:00] VITALS: BP 139/69
[2021-09-24 05:58] LABS: Basophils # (auto) 0 10 ^3/uL (0-0.2); Basophils % (auto) 0.8 % (0.0-2.0); Eosinophils # (auto) 0.3 10 ^3/uL (0-0.8); Eosinophils % (auto) 5.3 % (0.0-7.0); Hematocrit 30.4 % (41.0-53.0); Hemoglobin 10.9 g/dL (13.5-17.5); Lymphocytes % (auto) 16.8 % (10.0-50.0); Mean Corpuscular Hemoglobin 32.5 pg (28.0-32.0); Mean Corpuscular Hgb Conc. 35.8 g/dL (32.0-36.0); Mean Corpuscular Volume 90.7 fL (80.0-100.0); Monocytes # (auto) 0.6 10 ^3/uL (0-1.3); Monocytes % (auto) 9.9 % (0.0-12.0); Neutrophils % (auto) 67.2 % (37.0-80.0); Red Blood Cells 3.35 10^6/uL (4.5-5.90); Red Cell Distribution Width 16.3 % (11.8-14.3); White Blood Cell 5.9 10^3/uL (4.4-10.8)
[2021-09-24 06:06] LABS: Potassium 3.7 mmol/L (3.5-5.1)
[2021-09-24 06:11] LABS: Albumin 2.6 g/dL (3.4-5.0); BUN/Creatinine Ratio 16.5; Calcium 7.8 mg/dL (8.5-10.1); Magnesium 2.2 mg/dL (1.6-2.6)
[2021-09-24 06:12] LABS: Bilirubin, Total 0.4 mg/dL (0.2-1.0); Total Protein 5.4 g/dL (6.4-8.2)
[2021-09-24] MEDS: ACCU-CHEK COMFORT CURVE STRIP VI SCH ×4 (06:16→22:27)
[2021-09-24] MEDS: GABAPENTIN 100 MG CAP PO SCH (06:16)
[2021-09-24] MEDS: InsuLIN REG 1unit/0.01ml Soln (100units/ml) SC SCH ×4 (06:18→22:31)
[2021-09-24] MEDS: INSULIN NPH Isophane (HUMAN) 1unit/0.01ml Susp(100units/ml) SC SCH ×3 (06:21→18:00)
[2021-09-24 09:13] VITALS: BP 136/61
[2021-09-24] MEDS: ASPirin-EC 81 mg tab PO SCH (11:56)
[2021-09-24] MEDS: POTASSIUM CHLORIDE 8 MEQ TAB PO SCH (11:56)
[2021-09-24] MEDS: CIPROFLOXACIN HCL 500 MG TAB PO SCH ×2 (11:57→22:26)
[2021-09-24] MEDS: ENOXAPARIN SOD 40 MG/0.4 ML SYRINGE SC SCH (11:57)
[2021-09-24] MEDS ORDERED: VANCOMYCIN HCL 125MG/5ML ORAL SOL PO SCH (12:00)
[2021-09-24] MEDS: METOPROLOL TARTRATE 25 MG TAB PO SCH ×2 (12:03→22:27)
[2021-09-24] MEDS: VANCOMYCIN HCL 125MG/5ML ORAL SOL PO SCH ×3 (12:23→22:26)
[2021-09-24] MEDS: LACTATED RINGER'S 1,000 ML IV SCH (12:25)
[2021-09-24 12:39] VITALS: BP 123/88
[2021-09-24 17:00] VITALS: BP 135/58
[2021-09-24 22:00] VITALS: BP 125/56
[2021-09-24] MEDS: ATORVASTATIN 20 MG TAB PO SCH (22:26)
[2021-09-25] MEDS: LACTATED RINGER'S 1,000 ML IV SCH (02:49)
[2021-09-25 05:00] VITALS: BP 132/53
[2021-09-25] MEDS: ACCU-CHEK COMFORT CURVE STRIP VI SCH ×4 (06:26→22:05)
[2021-09-25] MEDS: InsuLIN REG 1unit/0.01ml Soln (100units/ml) SC SCH ×4 (06:26→22:20)
[2021-09-25] MEDS: GABAPENTIN 100 MG CAP PO SCH (06:26)
[2021-09-25] MEDS: VANCOMYCIN HCL 125MG/5ML ORAL SOL PO SCH ×4 (06:26→22:04)
[2021-09-25] MEDS: INSULIN NPH Isophane (HUMAN) 1unit/0.01ml Susp(100units/ml) SC SCH (06:26)
[2021-09-25] MEDS ORDERED: ADENOSINE 51 MG in GIVE UN-DILUTED 0 ML IV STA (07:58)
[2021-09-25 09:00] VITALS: BP 140/61
[2021-09-25] MEDS: ASPirin-EC 81 mg tab PO SCH (09:17)
[2021-09-25] MEDS: POTASSIUM CHLORIDE 8 MEQ TAB PO SCH (09:18)
[2021-09-25] MEDS: ENOXAPARIN SOD 40 MG/0.4 ML SYRINGE SC SCH (09:18)
[2021-09-25] MEDS: METOPROLOL TARTRATE 25 MG TAB PO SCH ×2 (09:18→22:05)
[2021-09-25] MEDS: CIPROFLOXACIN HCL 500 MG TAB PO SCH ×2 (09:18→22:04)
[2021-09-25] MEDS: HYDROcodone-ACET 5/325MG TAB PO PRN (09:19)
[2021-09-25 13:00] VITALS: BP 132/48
[2021-09-25 17:00] VITALS: BP 124/60
[2021-09-25 17:39] LABS: Urine Bacteria FEW /hpf (None Seen); Urine Blood Negative /uL (Negative); Urine Specific Gravity 1.011 (1.001-1.035); Urine WBC 1 /hpf (0 - 3)
[2021-09-25] MEDS: TAMSULOSIN HYDROCHLORIDE 0.4 MG CAP PO SCH (17:43)
[2021-09-25 22:00] VITALS: BP 131/64
[2021-09-25] MEDS: ATORVASTATIN 20 MG TAB PO SCH (22:04)
[2021-09-26 05:00] VITALS: BP 143/70
[2021-09-26] MEDS: ACCU-CHEK COMFORT CURVE STRIP VI SCH ×4 (06:42→22:15)
[2021-09-26] MEDS: InsuLIN REG 1unit/0.01ml Soln (100units/ml) SC SCH ×4 (06:42→22:00)
[2021-09-26] MEDS: VANCOMYCIN HCL 125MG/5ML ORAL SOL PO SCH ×4 (06:42→22:15)
[2021-09-26] MEDS: GABAPENTIN 100 MG CAP PO SCH (06:42)
[2021-09-26 09:00] VITALS: BP 142/47
[2021-09-26] MEDS: POTASSIUM CHLORIDE 8 MEQ TAB PO SCH (10:19)
[2021-09-26] MEDS: ASPirin-EC 81 mg tab PO SCH (10:19)
[2021-09-26] MEDS: CIPROFLOXACIN HCL 500 MG TAB PO SCH (10:19)
[2021-09-26] MEDS: ENOXAPARIN SOD 40 MG/0.4 ML SYRINGE SC SCH (10:20)
[2021-09-26] MEDS: METOPROLOL TARTRATE 25 MG TAB PO SCH ×2 (10:20→22:15)
[2021-09-26] MEDS ORDERED: TAM04C PO (11:47)
[2021-09-26] MEDS ORDERED: VANC125PO PO (11:47)
[2021-09-26] MEDS ORDERED: CIPR-173 PO (11:47)
[2021-09-26 13:00] VITALS: BP 148/89
[2021-09-26 17:00] VITALS: BP 114/64
[2021-09-26] MEDS: TAMSULOSIN HYDROCHLORIDE 0.4 MG CAP PO SCH (17:46)
[2021-09-26 22:00] VITALS: BP 137/54
[2021-09-26] MEDS: ATORVASTATIN 20 MG TAB PO SCH (22:15)
[2021-09-27] VITALS (11 sets, daily range): BP systolic 105–152; BP diastolic 8–65
[2021-09-27] MEDS: VANCOMYCIN HCL 125MG/5ML ORAL SOL PO SCH ×4 (06:00→22:00)
[2021-09-27 06:02] LABS: Hematocrit 28.4 % (41.0-53.0); Hemoglobin 10.2 g/dL (13.5-17.5); Mean Corpuscular Hemoglobin 32.7 pg (28.0-32.0); Mean Corpuscular Hgb Conc. 35.9 g/dL (32.0-36.0); Mean Corpuscular Volume 90.9 fL (80.0-100.0); Red Blood Cells 3.13 10^6/uL (4.5-5.90); White Blood Cell 5.1 10^3/uL (4.4-10.8)
[2021-09-27 06:17] LABS: Calcium 8.1 mg/dL (8.5-10.1); Potassium 3.8 mmol/L (3.5-5.1)
[2021-09-27 06:19] LABS: Band Neutrophils % (manual) 0; Basophils % (manual) 0 (0.0-2.0); Blast Cells 0; Metamyelocytes % 0; Myelocytes % 0; Promyelocytes % 0; Reactive Lymphocytes 0
[2021-09-27 06:21] LABS: BUN/Creatinine Ratio 13.9
[2021-09-27] MEDS: ACCU-CHEK COMFORT CURVE STRIP VI SCH ×4 (06:33→22:00)
[2021-09-27] MEDS: GABAPENTIN 100 MG CAP PO SCH (06:33)
[2021-09-27] MEDS: InsuLIN REG 1unit/0.01ml Soln (100units/ml) SC SCH ×4 (06:34→22:00)
[2021-09-27 08:06] LABS: Eosinophils % (manual) 4 (0-7); Lymphocytes % (manual) 33 (10.0-50.0); Monocytes % (manual) 17 (0-12)
[2021-09-27] MEDS ORDERED: ANGIOMAX 250 MG VIAL IV ONE (09:43)
[2021-09-27] MEDS ORDERED: IODIXANOL 320MG/ML 100ML BTL IV ONE (09:44)
[2021-09-27] MEDS ORDERED: HEPARIN SODIUM (PORCINE) 5000 UNITS/ML 1ML VIAL ONE (09:44)
[2021-09-27] MEDS ORDERED: SODIUM CHL 0.9% 50 ML ONE (09:44)
[2021-09-27] MEDS ORDERED: fentaNYL CITRATE 100 MCG/2 ML VL ONE (09:44)
[2021-09-27] MEDS ORDERED: MIDAZOLAM HCL 2MG/2ML 2ml VIAL (1mg/ml) ONE (09:44)
[2021-09-27] MEDS ORDERED: VERAPAMIL 2.5MG/ML INJ 2ML VIAL IV ONE (09:44)
[2021-09-27] MEDS ORDERED: LIDOCAINE 2%HCL (LOCAL ANESTH.) INJ 10ml MDV ONE (09:45)
[2021-09-27] MEDS: ENOXAPARIN SOD 40 MG/0.4 ML SYRINGE SC SCH (10:00)
[2021-09-27] MEDS: POTASSIUM CHLORIDE 8 MEQ TAB PO SCH (10:00)
[2021-09-27] MEDS: ASPirin-EC 81 mg tab PO SCH (10:00)
[2021-09-27] MEDS: METOPROLOL TARTRATE 25 MG TAB PO SCH ×2 (10:00→22:00)
[2021-09-27] MEDS ORDERED: hydrALAZINE HCL 20 MG/ML VL ONE (10:46)
[2021-09-27] MEDS ORDERED: ASPirin 81 mg TAB ONE (11:22)
[2021-09-27] MEDS ORDERED: CLOPIDOGREL 300 MG TAB ONE (11:22)
[2021-09-27] MEDS: TAMSULOSIN HYDROCHLORIDE 0.4 MG CAP PO SCH (18:15)
[2021-09-27] MEDS ORDERED: ATORVASTATIN 20 MG TAB PO SCH (22:00)
[2021-09-28 05:00] VITALS: BP 128/60
[2021-09-28] MEDS: ACCU-CHEK COMFORT CURVE STRIP VI SCH ×2 (06:24→11:30)
[2021-09-28] MEDS: VANCOMYCIN HCL 125MG/5ML ORAL SOL PO SCH ×2 (06:24→12:40)
[2021-09-28] MEDS: GABAPENTIN 100 MG CAP PO SCH (06:24)
[2021-09-28] MEDS: InsuLIN REG 1unit/0.01ml Soln (100units/ml) SC SCH ×2 (06:24→12:39)
[2021-09-28 09:00] VITALS: BP 131/65
[2021-09-28] MEDS ORDERED: CLOPIDOGREL BISULFATE 75 MG TAB PO SCH (10:00)
[2021-09-28] MEDS ORDERED: ASPI-543 PO (10:23)
[2021-09-28] MEDS ORDERED: ATOR20TA50 PO (10:23)
[2021-09-28] MEDS ORDERED: CLOP75TA70 PO (10:24)
[2021-09-28] MEDS: ENOXAPARIN SOD 40 MG/0.4 ML SYRINGE SC SCH (10:42)
[2021-09-28] MEDS: METOPROLOL TARTRATE 25 MG TAB PO SCH (10:42)
[2021-09-28] MEDS: ASPirin-EC 81 mg tab PO SCH (10:43)
[2021-09-28] MEDS: POTASSIUM CHLORIDE 8 MEQ TAB PO SCH (10:43)
[2021-09-28 13:00] VITALS: BP 127/55
[2021-09-28 16:32] VITALS: BP 127/55
== END 2021-09-28 18:50 | disposition home or self-care (01) | DRG 175 ==
LOC: ER 20:48 → EDBD 20:48 → TELE 09-22 14:25 → TELE-EAST 09-22 16:23
PROVIDERS: ADMIT Registered Nurse; ATTEND Hospitalist
PROC: 4A023N7 Measurement of Cardiac Sampling and Pressure, Left Heart, Percutaneous Approach (ICD-10-PCS; principal; 2021-09-27)
PROC: B211YZZ Fluoroscopy of Multiple Coronary Arteries using Other Contrast (ICD-10-PCS; 2021-09-27)
PROC: B215YZZ Fluoroscopy of Left Heart using Other Contrast (ICD-10-PCS; 2021-09-27)
PROC: 4A033BC Measurement of Arterial Pressure, Coronary, Percutaneous Approach (ICD-10-PCS; 2021-09-27)
PROC: 027034Z Dilation of Coronary Artery, One Artery with Drug-eluting Intraluminal Device, Percutaneous Approach (ICD-10-PCS; 2021-09-27)
PROC: 02C03ZZ Extirpation of Matter from Coronary Artery, One Artery, Percutaneous Approach (ICD-10-PCS; 2021-09-27)
DX: I47.9 Paroxysmal tachycardia, unspecified (principal); E11.649 Type 2 diabetes mellitus with hypoglycemia without coma; A04.72 Enterocolitis due to Clostridium difficile, not specified as recurrent; E11.40 Type 2 diabetes mellitus with diabetic neuropathy, unspecified; E88.09 Other disorders of plasma-protein metabolism, not elsewhere classified; B35.1 Tinea unguium; D50.9 Iron deficiency anemia, unspecified; E11.51 Type 2 diabetes mellitus with diabetic peripheral angiopathy without gangrene; E86.0 Dehydration; I25.10 Atherosclerotic heart disease of native coronary artery without angina pectoris; J43.9 Emphysema, unspecified; E83.42 Hypomagnesemia; Z20.822 Contact with and (suspected) exposure to COVID-19; E78.5 Hyperlipidemia, unspecified; I10 Essential (primary) hypertension
CPT/HCPCS: 36415; 71045; 71275; 75635; 78452; 80048; 80053; 81001; 82247; 82962; 83605; 83615; 83690; 83735; 83880; 84075; 84443; 84484; 85007; 85025; 85027; 85048; 85610; 85730; 87040; 87045; 87081; 87177; 87427; 87493; 92933; 93005; 93017; 93458; 93571; 93886; 96361; 96374; 97110; 97116; 97163; 97530; 99152; 99153; C1874; C1887; C9113; G0378; J0153; J0696; J1815; J2001; J2250; J3490; Q9967

== ENCOUNTER 2021-10-14 16:01 | Inpatient (IN) | payer MEDICAID ==
[~2021-10-14] VITALS: Ht 162.6 cm; Wt 58.3 kg
[~2021-10-14 16:01] MED LIST changes: +ASPI-543 PO; +CLOP75TA70 PO; -LEVO-28 PO; +METF-372 PO; +TAM04C PO; +VANC125PO PO
[2021-10-14] MEDS ORDERED: SODIUM CHLORIDE 0.9% 500 ML IVB ONE (16:30)
[2021-10-14] MEDS ORDERED: MORPHINE SULFATE 4 MG/ML SYR/VIAL IV ONE (16:30)
[2021-10-14] MEDS ORDERED: ONDANSETRON HCL 4 MG/2 ML VIAL IV ONE (16:30)
[2021-10-14 21:17] LABS: Hematocrit 41.7 % (41.0-53.0); Hemoglobin 14.4 g/dL (13.5-17.5); Mean Corpuscular Hemoglobin 32.2 pg (28.0-32.0); Mean Corpuscular Hgb Conc. 34.4 g/dL (32.0-36.0); Mean Corpuscular Volume 93.7 fL (80.0-100.0); Red Blood Cells 4.45 10^6/uL (4.5-5.90); White Blood Cell 5.6 10^3/uL (4.4-10.8)
[2021-10-14 21:24] LABS: Basophils % (manual) 0 (0.0-2.0); Blast Cells 0; Metamyelocytes % 0; Promyelocytes % 0; Reactive Lymphocytes 0
[2021-10-14 21:25] LABS: Albumin 3.7 g/dL (3.4-5.0); Calcium 9.1 mg/dL (8.5-10.1); Magnesium 1.7 mg/dL (1.6-2.6); Potassium 4.3 mmol/L (3.5-5.1)
[2021-10-14 21:28] LABS: BUN/Creatinine Ratio 12.7; Bilirubin, Total 0.9 mg/dL (0.2-1.0); Total Protein 8.2 g/dL (6.4-8.2)
[2021-10-14 21:56] LABS: Band Neutrophils % (manual) 8; Lymphocytes % (manual) 39 (10.0-50.0); Monocytes % (manual) 13 (0-12)
[2021-10-14] MEDS ORDERED: IOHEXOL 300 MG/ML 100ML BOTTLE IJ ONE ×2 (21:56→22:21)
[2021-10-14 21:57] LABS: Eosinophils % (manual) 3 (0-7); Myelocytes % 1
[2021-10-15] MEDS ORDERED: MORPHINE SULFATE INJECTION 2 MG/ML SYRG IV PRN (00:30)
[2021-10-15] MEDS ORDERED: NITROGLYCERIN 0.4 MG SL TAB SL PRN (00:30)
[2021-10-15] MEDS ORDERED: ONDANSETRON HCL 4 MG/2 ML VIAL IV PRN (00:30)
[2021-10-15] MEDS ORDERED: DEXTROSE (50%) 50ML SYRG IV PRN (00:30)
[2021-10-15] MEDS: SODIUM CHLORIDE 0.9% 1,000 ML IV SCH ×2 (01:00→11:04)
[2021-10-15 02:49] VITALS: BP 166/81
[2021-10-15] MEDS: MORPHINE SULFATE 4 MG/ML SYR/VIAL IV PRN ×2 (03:09→21:44)
[2021-10-15 05:00] VITALS: BP 138/69
[2021-10-15] MEDS: InsuLIN REG 1unit/0.01ml Soln (100units/ml) SC SCH ×3 (06:00→17:47)
[2021-10-15] MEDS: ACCU-CHEK COMFORT CURVE STRIP VI SCH ×3 (06:15→17:47)
[2021-10-15] MEDS: PIPERACILLIN-TAZOB 3.375GM 100 ML IV SCH ×3 (06:15→17:46)
[2021-10-15 06:55] LABS: Hematocrit 33.8 % (41.0-53.0); Hemoglobin 11.9 g/dL (13.5-17.5); Mean Corpuscular Hgb Conc. 35.1 g/dL (32.0-36.0); Mean Corpuscular Volume 91.4 fL (80.0-100.0); White Blood Cell 4.4 10^3/uL (4.4-10.8)
[2021-10-15 06:59] LABS: Basophils % (manual) 0 (0.0-2.0); Blast Cells 0; Promyelocytes % 0; Reactive Lymphocytes 0
[2021-10-15 07:21] LABS: Albumin 2.8 g/dL (3.4-5.0); Calcium 8.1 mg/dL (8.5-10.1)
[2021-10-15 07:25] LABS: BUN/Creatinine Ratio 11.8; Bilirubin, Total 0.8 mg/dL (0.2-1.0); Total Protein 6.2 g/dL (6.4-8.2)
[2021-10-15 07:44] LABS: Band Neutrophils % (manual) 9; Eosinophils % (manual) 2 (0-7); Lymphocytes % (manual) 29 (10.0-50.0); Metamyelocytes % 1; Monocytes % (manual) 18 (0-12); Myelocytes % 1
[2021-10-15 09:00] VITALS: BP 158/65
[2021-10-15] MEDS: ASPirin-EC 81 mg tab PO SCH (09:31)
[2021-10-15] MEDS: ENOXAPARIN SOD 40 MG/0.4 ML SYRINGE SC SCH (09:31)
[2021-10-15] MEDS: CLOPIDOGREL BISULFATE 75 MG TAB PO SCH (09:31)
[2021-10-15] MEDS: METOPROLOL TARTRATE 25 MG TAB PO SCH ×2 (09:32→22:19)
[2021-10-15] MEDS ORDERED: PATIENTS OWN MEDICATION (Clopidogrel Bisulfate (Clopidogrel) 75 MG) PO SCH (10:00)
[2021-10-15 13:00] VITALS: BP 139/60
[2021-10-15 16:51] VITALS: BP 128/60
[2021-10-15] MEDS: VANCOMYCIN HCL 125MG/5ML ORAL SOL PO SCH ×2 (17:46→22:19)
[2021-10-15] MEDS: TAMSULOSIN HYDROCHLORIDE 0.4 MG CAP PO SCH (17:46)
[2021-10-15 22:00] VITALS: BP 115/96
[2021-10-15] MEDS: ATORVASTATIN 20 MG TAB PO SCH (22:19)
[2021-10-16] MEDS: PIPERACILLIN-TAZOB 3.375GM 100 ML IV SCH ×4 (00:59→17:52)
[2021-10-16] MEDS: InsuLIN REG 1unit/0.01ml Soln (100units/ml) SC SCH ×4 (01:13→17:53)
[2021-10-16] MEDS: ACCU-CHEK COMFORT CURVE STRIP VI SCH ×4 (01:31→17:52)
[2021-10-16] MEDS: SODIUM CHLORIDE 0.9% 1,000 ML IV SCH ×3 (01:32→16:09)
[2021-10-16 05:01] VITALS: BP 119/44
[2021-10-16] MEDS: VANCOMYCIN HCL 125MG/5ML ORAL SOL PO SCH ×4 (06:01→22:25)
[2021-10-16] MEDS: CLOPIDOGREL BISULFATE 75 MG TAB PO SCH (09:38)
[2021-10-16] MEDS: ASPirin-EC 81 mg tab PO SCH (09:38)
[2021-10-16] MEDS: ENOXAPARIN SOD 40 MG/0.4 ML SYRINGE SC SCH (09:39)
[2021-10-16] MEDS: METOPROLOL TARTRATE 25 MG TAB PO SCH ×2 (09:39→22:25)
[2021-10-16 13:00] VITALS: BP 110/50
[2021-10-16 16:51] VITALS: BP 113/53
[2021-10-16] MEDS: TAMSULOSIN HYDROCHLORIDE 0.4 MG CAP PO SCH (17:52)
[2021-10-16 22:00] VITALS: BP 132/62
[2021-10-16] MEDS: ATORVASTATIN 20 MG TAB PO SCH (22:24)
[2021-10-17] MEDS: InsuLIN REG 1unit/0.01ml Soln (100units/ml) SC SCH ×3 (00:23→11:56)
[2021-10-17] MEDS: ACCU-CHEK COMFORT CURVE STRIP VI SCH ×3 (00:23→11:45)
[2021-10-17] MEDS: PIPERACILLIN-TAZOB 3.375GM 100 ML IV SCH ×2 (00:23→06:04)
[2021-10-17] MEDS: SODIUM CHLORIDE 0.9% 1,000 ML IV SCH ×2 (04:37→13:05)
[2021-10-17 05:00] VITALS: BP 127/44
[2021-10-17] MEDS: VANCOMYCIN HCL 125MG/5ML ORAL SOL PO SCH ×2 (06:04→11:55)
[2021-10-17] MEDS: CLOPIDOGREL BISULFATE 75 MG TAB PO SCH (08:50)
[2021-10-17] MEDS: ENOXAPARIN SOD 40 MG/0.4 ML SYRINGE SC SCH (08:50)
[2021-10-17] MEDS: ASPirin-EC 81 mg tab PO SCH (08:50)
[2021-10-17 08:57] VITALS: BP 100/50
[2021-10-17] MEDS ORDERED: VANC250C4 PO (09:16)
[2021-10-17] MEDS: METOPROLOL TARTRATE 25 MG TAB PO SCH (10:00)
[2021-10-17] MEDS ORDERED: HYDROcodone-ACET 5/325MG TAB PO ONE (10:30)
[2021-10-17 12:34] VITALS: BP 109/52
== END 2021-10-17 15:12 | disposition hospice, home (50) | DRG 245 ==
LOC: ER 16:01 → EDBD 16:01 → TELE 10-15 00:26 → TELE-CENTR 10-15 02:49
PROVIDERS: ADMIT Hospitalist; ATTEND Hospitalist
DX: K51.00 Ulcerative (chronic) pancolitis without complications (principal); A04.72 Enterocolitis due to Clostridium difficile, not specified as recurrent; F03.90 Unspecified dementia, unspecified severity, without behavioral disturbance, psychotic disturbance, mood disturbance, and anxiety; E11.9 Type 2 diabetes mellitus without complications; E78.5 Hyperlipidemia, unspecified; I10 Essential (primary) hypertension; I25.10 Atherosclerotic heart disease of native coronary artery without angina pectoris; Z20.822 Contact with and (suspected) exposure to COVID-19; N40.0 Benign prostatic hyperplasia without lower urinary tract symptoms; Z82.49 Family history of ischemic heart disease and other diseases of the circulatory system; Z83.3 Family history of diabetes mellitus; Z95.1 Presence of aortocoronary bypass graft; Z95.2 Presence of prosthetic heart valve
CPT/HCPCS: 36415; 74176; 74177; 80053; 82150; 82962; 83605; 83690; 83735; 85007; 85027; 87045; 87081; 87427; 87493; 93005; 96361; 96374; 96375; G0378; J1815; J2405; J2543

== ENCOUNTER → 2021-10-29 | Outpatient (CLI) | payer MEDICAID ==
[~2021-10-29] MED LIST changes: -VANC125PO PO; +VANC250C4 PO
== END | disposition home or self-care (01) ==
LOC: XYW 10:52
PROVIDERS: ATTEND Podiatrist
DX: I70.201 Unspecified atherosclerosis of native arteries of extremities, right leg (principal)
CPT/HCPCS: 93925

== ENCOUNTER 2021-11-26 13:36 | Inpatient (IN) | payer MEDICAID ==
[~2021-11-26] VITALS: Ht 152.4 cm; Wt 54.4 kg
[2021-11-26 14:36] LABS: Hematocrit 36.5 % (41.0-53.0); Hemoglobin 12.4 g/dL (13.5-17.5); Mean Corpuscular Volume 91.2 fL (80.0-100.0); Red Cell Distribution Width 14.2 % (11.8-14.3); White Blood Cell 4.9 10^3/uL (4.4-10.8)
[2021-11-26 14:45] LABS: Basophils % (manual) 0 (0.0-2.0); Blast Cells 0; Eosinophils % (manual) 0 (0-7); Metamyelocytes % 0; Myelocytes % 0; Promyelocytes % 0; Reactive Lymphocytes 0
[2021-11-26 14:49] LABS: INR 1.08 (0.9-1.15); Partial Thromboplastin Time 28.2 sec (23.6-33.0)
[2021-11-26 15:11] LABS: Albumin 3.4 g/dL (3.4-5.0); Calcium 8.8 mg/dL (8.5-10.1); Potassium 4.5 mmol/L (3.5-5.1)
[2021-11-26 15:16] LABS: BUN/Creatinine Ratio 21.3; Total Protein 7.2 g/dL (6.4-8.2)
[2021-11-26 15:41] LABS: Band Neutrophils % (manual) 12; Lymphocytes % (manual) 33 (10.0-50.0); Monocytes % (manual) 13 (0-12)
[2021-11-26] MEDS ORDERED: IOHEXOL 350 MG/ML 100ML IJ ONE (20:06)
[2021-11-26] MEDS ORDERED: NITROGLYCERIN 0.4 MG SL TAB SL PRN (22:00)
[2021-11-26] MEDS ORDERED: MORPHINE SULFATE INJ 2 MG/ml SYRG IV PRN ×2 (22:00)
[2021-11-26] MEDS ORDERED: DEXTROSE (50%) 50ML SYRG IV PRN (22:00)
[2021-11-26] MEDS ORDERED: ALBUTEROL SULF 2.5 MG/0.5ML(0.5%) NEB SOLN NEB PRN (22:00)
[2021-11-26] MEDS ORDERED: ONDANSETRON HCL 4 MG/2 ML VIAL IV PRN (22:00)
[2021-11-27] MEDS: SODIUM CHLORIDE 0.9% 1,000 ML IV SCH ×2 (01:19→08:00)
[2021-11-27] MEDS: ACCU-CHEK COMFORT CURVE STRIP VI SCH ×4 (01:19→17:29)
[2021-11-27] MEDS: InsuLIN REG 1unit/0.01ml Soln (100units/ml) SC SCH ×4 (01:27→17:00)
[2021-11-27 03:44] LABS: Urine Bacteria NONE SEEN /hpf (None Seen); Urine Blood Negative /uL (Negative); Urine WBC 1 /hpf (0 - 3)
[2021-11-27 03:47] VITALS: BP 149/59
[2021-11-27 03:48] LABS: Urine Specific Gravity > 1.050 (1.001-1.035)
[2021-11-27 07:54] LABS: Hematocrit 36.5 % (41.0-53.0); Hemoglobin 12.4 g/dL (13.5-17.5); Mean Corpuscular Hemoglobin 31.7 pg (28.0-32.0); Mean Corpuscular Hgb Conc. 33.9 g/dL (32.0-36.0); Mean Corpuscular Volume 93.4 fL (80.0-100.0); Red Blood Cells 3.91 10^6/uL (4.5-5.90); White Blood Cell 4.6 10^3/uL (4.4-10.8)
[2021-11-27 08:09] LABS: Basophils % (manual) 0 (0.0-2.0); Blast Cells 0; Metamyelocytes % 0; Myelocytes % 0; Promyelocytes % 0; Reactive Lymphocytes 0
[2021-11-27] MEDS ORDERED: cefTRIAXone 1GM/50ML D5W 50 ML IV SCH (09:00)
[2021-11-27 09:18] LABS: Band Neutrophils % (manual) 4; Eosinophils % (manual) 1 (0-7); Lymphocytes % (manual) 21 (10.0-50.0); Monocytes % (manual) 19 (0-12)
[2021-11-27] MEDS ORDERED: ENOXAPARIN SOD 40 MG/0.4 ML SYRINGE SC SCH (10:00)
[2021-11-27] MEDS ORDERED: ASPirin-EC 81 mg tab PO SCH (10:00)
[2021-11-27] MEDS ORDERED: CLOPIDOGREL BISULFATE 75 MG TAB PO SCH (10:00)
[2021-11-27] MEDS ORDERED: METOPROLOL TARTRATE 25 MG TAB PO SCH (10:00)
[2021-11-27] MEDS ORDERED: AZITHROMYCIN 500MG/ 250ML 250 ML IV SCH (10:00)
[2021-11-27 17:21] VITALS: BP 134/62
[2021-11-27] MEDS ORDERED: TAMSULOSIN HYDROCHLORIDE 0.4 MG CAP PO SCH (18:00)
[2021-11-27 18:06] VITALS: BP 134/62
[2021-11-27] MEDS ORDERED: ATORVASTATIN 20 MG TAB PO SCH (22:00)
== END 2021-11-27 19:26 | disposition hospice, home (50) | DRG 197 ==
LOC: ER 13:36 → TELE 22:00 → TELE-WESTW 11-27 17:15
PROVIDERS: ADMIT Hospitalist; ATTEND Hospitalist
DX: I73.9 Peripheral vascular disease, unspecified (principal); N17.9 Acute kidney failure, unspecified; E11.51 Type 2 diabetes mellitus with diabetic peripheral angiopathy without gangrene; F03.90 Unspecified dementia, unspecified severity, without behavioral disturbance, psychotic disturbance, mood disturbance, and anxiety; M79.604 Pain in right leg; I10 Essential (primary) hypertension; I25.10 Atherosclerotic heart disease of native coronary artery without angina pectoris; E78.5 Hyperlipidemia, unspecified; N40.0 Benign prostatic hyperplasia without lower urinary tract symptoms; Z95.1 Presence of aortocoronary bypass graft; M79.605 Pain in left leg; R79.89 Other specified abnormal findings of blood chemistry; Z20.822 Contact with and (suspected) exposure to COVID-19; Z51.5 Encounter for palliative care; Z79.84 Long term (current) use of oral hypoglycemic drugs
CPT/HCPCS: 36415; 70450; 71045; 71275; 80053; 81001; 82962; 83880; 84484; 85007; 85027; 85379; 85610; 85730; 93005; 93970; 96365; 96367; 99291; G0378; J0696; J1815

== ENCOUNTER 2021-11-30 11:53 | Inpatient (IN) | payer MEDICAID ==
[~2021-11-30] VITALS: Ht 160 cm; Wt 58.0 kg
[~2021-11-30 11:53] MED LIST changes: -METF-929 PO; -VANC250C4 PO
[2021-11-30 16:25] LABS: Basophils # (auto) 0 10 ^3/uL (0-0.2); Basophils % (auto) 0.2 % (0.0-2.0); Eosinophils # (auto) 0 10 ^3/uL (0-0.8); Hematocrit 39.3 % (41.0-53.0); Hemoglobin 13.4 g/dL (13.5-17.5); Lymphocytes # (auto) 0.6 10 ^3/uL (0.4-5.4); Lymphocytes % (auto) 5.5 % (10.0-50.0); Mean Corpuscular Hemoglobin 31.5 pg (28.0-32.0); Mean Corpuscular Hgb Conc. 34.1 g/dL (32.0-36.0); Mean Corpuscular Volume 92.4 fL (80.0-100.0); Monocytes # (auto) 1.4 10 ^3/uL (0-1.3); Neutrophils # (auto) 8.6 10 ^3/uL (1.6-8.6); Neutrophils % (auto) 81.3 % (37.0-80.0); Red Blood Cells 4.26 10^6/uL (4.5-5.90); White Blood Cell 10.6 10^3/uL (4.4-10.8)
[2021-11-30 16:48] LABS: Alanine Aminotransferase 11 U/L (16-61); Albumin 2.6 g/dL (3.4-5.0); Anion Gap 10 (5-15); Aspartate Aminotransferase 11 U/L (15-37); BUN/Creatinine Ratio 16.6; Blood Alcohol < 3.0 mg/dL (0-5); Blood Urea Nitrogen 24 mg/dL (7-18); Calcium 8.3 mg/dL (8.5-10.1); Carbon Dioxide 23 mmol/L (21-32); Chloride 103 mmol/L (98-107); GFR African American 60 mL/min; GFR Non-African American 49 mL/min; Glucose 165 mg/dL (74-106); Potassium 4.2 mmol/L (3.5-5.1); Sodium 136 mmol/L (136-145)
[2021-11-30 16:50] LABS: Alkaline Phosphatase 62 U/L (45-117); Bilirubin, Total 0.7 mg/dL (0.2-1.0); Total Protein 6.3 g/dL (6.4-8.2)
[2021-11-30 16:57] LABS: Lactic Acid w/Reflex 2.3 mmol/L (0.4-2.0)
[2021-11-30] MEDS ORDERED: AZITHROMYCIN 500MG/ 250ML 250 ML IV ONE (19:45)
[2021-11-30] MEDS ORDERED: ASPirin 81 mg TAB PO ONE (19:45)
[2021-11-30] MEDS ORDERED: cefTRIAXone 1GM/50ML D5W 50 ML IV ONE (19:45)
[2021-11-30] MEDS ORDERED: NITROGLYCERIN 0.4 MG SL TAB SL PRN (20:00)
[2021-11-30] MEDS ORDERED: DEXTROSE (50%) 50ML SYRG IV PRN (20:00)
[2021-11-30] MEDS ORDERED: MORPHINE SULFATE INJ 2 MG/ml SYRG IV PRN (20:00)
[2021-11-30] MEDS ORDERED: ONDANSETRON HCL 4 MG/2 ML VIAL IV PRN (20:00)
[2021-11-30] MEDS: SODIUM CHLORIDE 0.9% 1,000 ML IV SCH (20:24)
[2021-11-30] MEDS: ATORVASTATIN 20 MG TAB PO SCH (22:38)
[2021-11-30] MEDS: ACCU-CHEK COMFORT CURVE STRIP VI SCH (23:42)
[2021-11-30] MEDS: InsuLIN REG 1unit/0.01ml Soln (100units/ml) SC SCH (23:43)
[2021-11-30] MEDS: PIPERACILLIN-TAZOB 3.375GM 100 ML IV SCH (23:49)
[2021-12-01] VITALS (7 sets, daily range): BP systolic 90–125; BP diastolic 44–67
[2021-12-01] MEDS: ACCU-CHEK COMFORT CURVE STRIP VI SCH ×3 (06:35→18:08)
[2021-12-01] MEDS: PIPERACILLIN-TAZOB 3.375GM 100 ML IV SCH ×3 (06:35→18:17)
[2021-12-01] MEDS: InsuLIN REG 1unit/0.01ml Soln (100units/ml) SC SCH ×3 (06:37→18:00)
[2021-12-01] MEDS: SODIUM CHLORIDE 0.9% 1,000 ML IV SCH ×2 (06:37→16:11)
[2021-12-01] MEDS: ASPirin-EC 81 mg tab PO SCH (09:18)
[2021-12-01] MEDS: ENOXAPARIN SOD 40 MG/0.4 ML SYRINGE SC SCH (09:18)
[2021-12-01] MEDS ORDERED: SODIUM CHLORIDE 0.9% 1,000 ML IV ONE (10:45)
[2021-12-01] MEDS ORDERED: MORPHINE SULFATE INJ 2 MG/ml SYRG IV ONE (10:45)
[2021-12-01] MEDS: ACETAMINOPHEN 325 MG TAB PO PRN ×2 (12:10→21:21)
[2021-12-01 12:46] LABS: Hematocrit 36.4 % (41.0-53.0); Hemoglobin 12.8 g/dL (13.5-17.5); Mean Corpuscular Hemoglobin 32.1 pg (28.0-32.0); Mean Corpuscular Hgb Conc. 35.1 g/dL (32.0-36.0); Mean Corpuscular Volume 91.5 fL (80.0-100.0); Red Blood Cells 3.98 10^6/uL (4.5-5.90); White Blood Cell 10.4 10^3/uL (4.4-10.8)
[2021-12-01 12:56] LABS: BUN/Creatinine Ratio 19.1; Calcium 7.6 mg/dL (8.5-10.1); Potassium 4.1 mmol/L (3.5-5.1)
[2021-12-01 13:21] LABS: Basophils % (manual) 0 (0.0-2.0); Blast Cells 0; Eosinophils % (manual) 0 (0-7); Myelocytes % 0; Promyelocytes % 0; Reactive Lymphocytes 0
[2021-12-01] MEDS ORDERED: CLOPIDOGREL 300 MG TAB PO ONE (13:30)
[2021-12-01 14:55] LABS: Band Neutrophils % (manual) 80; Lymphocytes % (manual) 5 (10.0-50.0); Metamyelocytes % 6; Monocytes % (manual) 8 (0-12)
[2021-12-01] MEDS ORDERED: VANCOMYCIN PER PHARMACY 0 MG IV SCH (16:45)
[2021-12-01] MEDS ORDERED: VANCOMYCIN 1GM/250ML 250 ML IV ONE (17:30)
[2021-12-01] MEDS: ATORVASTATIN 20 MG TAB PO SCH (21:20)
[2021-12-02] MEDS: PIPERACILLIN-TAZOB 3.375GM 100 ML IV SCH ×4 (01:07→17:15)
[2021-12-02] MEDS: ACCU-CHEK COMFORT CURVE STRIP VI SCH ×4 (01:08→17:21)
[2021-12-02] MEDS: InsuLIN REG 1unit/0.01ml Soln (100units/ml) SC SCH ×4 (01:15→17:35)
[2021-12-02] MEDS: SODIUM CHLORIDE 0.9% 1,000 ML IV SCH ×3 (03:55→22:18)
[2021-12-02 05:09] VITALS: BP 109/49
[2021-12-02 09:00] VITALS: BP 97/35
[2021-12-02 10:05] LABS: Basophils # (auto) 0 10 ^3/uL (0-0.2); Basophils % (auto) 0.2 % (0.0-2.0); Eosinophils # (auto) 0.1 10 ^3/uL (0-0.8); Eosinophils % (auto) 0.9 % (0.0-7.0); Hematocrit 37.7 % (41.0-53.0); Hemoglobin 12.8 g/dL (13.5-17.5); Lymphocytes # (auto) 0.6 10 ^3/uL (0.4-5.4); Lymphocytes % (auto) 5.3 % (10.0-50.0); Mean Corpuscular Hemoglobin 31.1 pg (28.0-32.0); Mean Corpuscular Hgb Conc. 33.9 g/dL (32.0-36.0); Mean Corpuscular Volume 91.8 fL (80.0-100.0); Monocytes # (auto) 0.9 10 ^3/uL (0-1.3); Monocytes % (auto) 8.7 % (0.0-12.0); Neutrophils # (auto) 9.2 10 ^3/uL (1.6-8.6); Neutrophils % (auto) 84.9 % (37.0-80.0); Red Cell Distribution Width 14.2 % (11.8-14.3); White Blood Cell 10.9 10^3/uL (4.4-10.8)
[2021-12-02 10:20] LABS: Calcium 7.7 mg/dL (8.5-10.1); Potassium 3.5 mmol/L (3.5-5.1)
[2021-12-02 10:23] LABS: BUN/Creatinine Ratio 16.7
[2021-12-02] MEDS: ASPirin-EC 81 mg tab PO SCH (10:36)
[2021-12-02] MEDS: ENOXAPARIN SOD 40 MG/0.4 ML SYRINGE SC SCH (10:36)
[2021-12-02] MEDS: CLOPIDOGREL BISULFATE 75 MG TAB PO SCH (10:36)
[2021-12-02] MEDS: ENOXAPARIN SOD 30 MG/0.3 ML SYRINGE SC SCH (12:16)
[2021-12-02 13:00] VITALS: BP 116/54
[2021-12-02] MEDS: ACETAMINOPHEN 325 MG TAB PO PRN (13:16)
[2021-12-02] MEDS: VANCOMYCIN 1GM/250ML 250 ML IV SCH (16:15)
[2021-12-02 17:00] VITALS: BP 134/86
[2021-12-02] MEDS ORDERED: MORPHINE SULFATE INJ 2 MG/ml SYRG IV PRN (17:00)
[2021-12-02] MEDS ORDERED: HYDROcodone-ACET 5/325MG TAB PO PRN (17:00)
[2021-12-02] MEDS: VANCOMYCIN HCL 125MG/5ML ORAL SOL PO SCH ×2 (17:30→22:18)
[2021-12-02 22:00] VITALS: BP 115/49
[2021-12-02] MEDS: ATORVASTATIN 20 MG TAB PO SCH (22:17)
[2021-12-03] MEDS: ACCU-CHEK COMFORT CURVE STRIP VI SCH ×4 (00:57→17:31)
[2021-12-03] MEDS: InsuLIN REG 1unit/0.01ml Soln (100units/ml) SC SCH ×4 (00:58→17:43)
[2021-12-03] MEDS: PIPERACILLIN-TAZOB 3.375GM 100 ML IV SCH ×3 (00:58→12:50)
[2021-12-03 05:00] VITALS: BP 133/62
[2021-12-03 06:30] LABS: Basophils # (auto) 0 10 ^3/uL (0-0.2); Basophils % (auto) 0.4 % (0.0-2.0); Eosinophils # (auto) 0.2 10 ^3/uL (0-0.8); Eosinophils % (auto) 2.2 % (0.0-7.0); Hematocrit 35.3 % (41.0-53.0); Hemoglobin 12.5 g/dL (13.5-17.5); Lymphocytes # (auto) 0.9 10 ^3/uL (0.4-5.4); Lymphocytes % (auto) 12.4 % (10.0-50.0); Mean Corpuscular Hemoglobin 32.4 pg (28.0-32.0); Mean Corpuscular Hgb Conc. 35.5 g/dL (32.0-36.0); Mean Corpuscular Volume 91.3 fL (80.0-100.0); Monocytes # (auto) 0.6 10 ^3/uL (0-1.3); Neutrophils # (auto) 5.7 10 ^3/uL (1.6-8.6); Red Blood Cells 3.87 10^6/uL (4.5-5.90); Red Cell Distribution Width 14.3 % (11.8-14.3); White Blood Cell 7.5 10^3/uL (4.4-10.8)
[2021-12-03 06:34] LABS: BUN/Creatinine Ratio 15.8; Calcium 7.5 mg/dL (8.5-10.1); Potassium 3.9 mmol/L (3.5-5.1)
[2021-12-03] MEDS: VANCOMYCIN HCL 125MG/5ML ORAL SOL PO SCH ×4 (06:42→21:16)
[2021-12-03 08:06] LABS: RPR Non Reactive (Non Reactive)
[2021-12-03 08:10] VITALS: BP 94/65
[2021-12-03 09:00] VITALS: BP 94/65
[2021-12-03] MEDS: ENOXAPARIN SOD 30 MG/0.3 ML SYRINGE SC SCH (09:53)
[2021-12-03] MEDS: CLOPIDOGREL BISULFATE 75 MG TAB PO SCH (09:53)
[2021-12-03] MEDS: ASPirin-EC 81 mg tab PO SCH (09:53)
[2021-12-03 13:00] VITALS: BP 114/58
[2021-12-03] MEDS: SODIUM CHLORIDE 0.9% 1,000 ML IV SCH ×2 (13:37→18:38)
[2021-12-03 17:00] VITALS: BP 101/52
[2021-12-03] MEDS: VANCOMYCIN 1GM/250ML 250 ML IV SCH (17:29)
[2021-12-03] MEDS: ATORVASTATIN 20 MG TAB PO SCH (21:17)
[2021-12-03 22:00] VITALS: BP 139/73
[2021-12-04] MEDS: InsuLIN REG 1unit/0.01ml Soln (100units/ml) SC SCH ×4 (00:34→18:15)
[2021-12-04] MEDS: SODIUM CHLORIDE 0.9% 1,000 ML IV SCH ×2 (04:00→14:00)
[2021-12-04 05:00] VITALS: BP 155/98
[2021-12-04] MEDS: VANCOMYCIN HCL 125MG/5ML ORAL SOL PO SCH ×4 (06:12→21:31)
[2021-12-04] MEDS: ACCU-CHEK COMFORT CURVE STRIP VI SCH ×4 (06:13→18:13)
[2021-12-04] MEDS: cefTRIAXone 1GM/50ML D5W 50 ML IV SCH (08:59)
[2021-12-04 09:00] VITALS: BP 115/64
[2021-12-04] MEDS: CLOPIDOGREL BISULFATE 75 MG TAB PO SCH (09:00)
[2021-12-04] MEDS: ENOXAPARIN SOD 30 MG/0.3 ML SYRINGE SC SCH (09:00)
[2021-12-04] MEDS: ASPirin-EC 81 mg tab PO SCH (09:00)
[2021-12-04 09:06] VITALS: BP 126/61
[2021-12-04 13:00] VITALS: BP 121/65
[2021-12-04 15:29] LABS: BUN/Creatinine Ratio 18.9; Potassium 3.9 mmol/L (3.5-5.1)
[2021-12-04 16:29] VITALS: BP 129/60
[2021-12-04] MEDS ORDERED: LEVO500T31 PO (19:41)
[2021-12-04] MEDS ORDERED: VANC250C4 PO (19:41)
[2021-12-04] MEDS: ATORVASTATIN 20 MG TAB PO SCH (21:31)
[2021-12-04 22:00] VITALS: BP 115/62
[2021-12-05] MEDS: SODIUM CHLORIDE 0.9% 1,000 ML IV SCH ×2 (00:38→10:00)
[2021-12-05] MEDS: InsuLIN REG 1unit/0.01ml Soln (100units/ml) SC SCH ×3 (00:45→12:35)
[2021-12-05 05:00] VITALS: BP 119/57
[2021-12-05] MEDS: ACCU-CHEK COMFORT CURVE STRIP VI SCH ×3 (06:00→12:36)
[2021-12-05] MEDS: VANCOMYCIN HCL 125MG/5ML ORAL SOL PO SCH ×2 (06:45→12:40)
[2021-12-05 08:00] VITALS: BP 136/49
[2021-12-05 08:53] LABS: BUN/Creatinine Ratio 15.8; Calcium 7.2 mg/dL (8.5-10.1); Potassium 3.5 mmol/L (3.5-5.1)
[2021-12-05 09:00] VITALS: BP 136/49
[2021-12-05] MEDS: cefTRIAXone 1GM/50ML D5W 50 ML IV SCH (10:36)
[2021-12-05] MEDS: CLOPIDOGREL BISULFATE 75 MG TAB PO SCH (10:56)
[2021-12-05] MEDS: ASPirin-EC 81 mg tab PO SCH (10:56)
[2021-12-05] MEDS: ENOXAPARIN SOD 30 MG/0.3 ML SYRINGE SC SCH (10:57)
== END 2021-12-05 14:24 | disposition hospice, home (50) | DRG 190 ==
LOC: EDBD 11:53 → ER 11:53 → OVERFLOW 19:56 → TELE-WESTW 22:55
PROVIDERS: ADMIT Hospitalist; ATTEND Internal Medicine
DX: I21.4 Non-ST elevation (NSTEMI) myocardial infarction (principal); J96.01 Acute respiratory failure with hypoxia; G92.8 Other toxic encephalopathy; J15.29 Pneumonia due to other staphylococcus; I13.0 Hypertensive heart and chronic kidney disease with heart failure and stage 1 through stage 4 chronic kidney disease, or unspecified chronic kidney disease; A04.72 Enterocolitis due to Clostridium difficile, not specified as recurrent; N17.9 Acute kidney failure, unspecified; R78.81 Bacteremia; E11.22 Type 2 diabetes mellitus with diabetic chronic kidney disease; E11.40 Type 2 diabetes mellitus with diabetic neuropathy, unspecified; I50.9 Heart failure, unspecified; Z20.822 Contact with and (suspected) exposure to COVID-19; I95.9 Hypotension, unspecified; E86.0 Dehydration; J98.11 Atelectasis; N18.9 Chronic kidney disease, unspecified; I25.10 Atherosclerotic heart disease of native coronary artery without angina pectoris; F03.90 Unspecified dementia, unspecified severity, without behavioral disturbance, psychotic disturbance, mood disturbance, and anxiety; N40.0 Benign prostatic hyperplasia without lower urinary tract symptoms; E78.5 Hyperlipidemia, unspecified
CPT/HCPCS: 36415; 36600; 70450; 71045; 71250; 74176; 80048; 80053; 80320; 82140; 82607; 82805; 82962; 83605; 84443; 84484; 85007; 85025; 85027; 86592; 87040; 87077; 87081; 87186; 87493; 92610; 93005; 93306; 95819; 96365; 96368; 97110; 97163; 97530; G0378; J0696; J1815; J2405; J2543

== ENCOUNTER 2021-12-26 21:16 | Inpatient (IN) | payer MEDICAID ==
[~2021-12-26] VITALS: Ht 165.1 cm; Wt 49.6 kg
[~2021-12-26 21:16] MED LIST changes: +LEVO500T31 PO; +VANC250C4 PO
[2021-12-26 23:17] LABS: Hematocrit 29.7 % (41.0-53.0); Hemoglobin 10.3 g/dL (13.5-17.5); Mean Corpuscular Hemoglobin 30.9 pg (28.0-32.0); Mean Corpuscular Hgb Conc. 34.8 g/dL (32.0-36.0); Mean Corpuscular Volume 88.9 fL (80.0-100.0); Red Blood Cells 3.34 10^6/uL (4.5-5.90); Red Cell Distribution Width 14.7 % (11.8-14.3); White Blood Cell 5.1 10^3/uL (4.4-10.8)
[2021-12-26 23:23] LABS: Basophils % (manual) 0 (0.0-2.0); Blast Cells 0; Metamyelocytes % 0; Myelocytes % 0; Promyelocytes % 0; Reactive Lymphocytes 0
[2021-12-26 23:39] LABS: Albumin 2.1 g/dL (3.4-5.0); BUN/Creatinine Ratio 11.3; Calcium 7.6 mg/dL (8.5-10.1)
[2021-12-26 23:42] LABS: Potassium 2.9 mmol/L (3.5-5.1)
[2021-12-26 23:43] LABS: Bilirubin, Total 0.3 mg/dL (0.2-1.0); Total Protein 5.2 g/dL (6.4-8.2)
[2021-12-27 00:20] LABS: Band Neutrophils % (manual) 9; Eosinophils % (manual) 3 (0-7); Lymphocytes % (manual) 24 (10.0-50.0); Monocytes % (manual) 18 (0-12)
[2021-12-27] MEDS ORDERED: NITROGLYCERIN 0.4 MG SL TAB SL PRN (04:45)
[2021-12-27] MEDS ORDERED: ONDANSETRON HCL 4 MG/2 ML VIAL IV PRN (04:45)
[2021-12-27] MEDS ORDERED: hydrALAZINE HCL 20 MG/ML VL IV PRN (04:45)
[2021-12-27] MEDS ORDERED: MORPHINE SULFATE INJ 2 MG/ml SYRG IV PRN ×2 (04:45)
[2021-12-27] MEDS ORDERED: DEXTROSE (50%) 50ML SYRG IV PRN (04:45)
[2021-12-27] MEDS ORDERED: POTASSIUM CHL 20MEQ/100ML 100 ML IV ONE ×2 (05:00→12:00)
[2021-12-27 07:17] LABS: Calcium 7.7 mg/dL (8.5-10.1)
[2021-12-27 07:19] LABS: BUN/Creatinine Ratio 9.3
[2021-12-27 07:41] LABS: Basophils # (auto) 0 10 ^3/uL (0-0.2); Basophils % (auto) 0.8 % (0.0-2.0); Eosinophils # (auto) 0.2 10 ^3/uL (0-0.8); Eosinophils % (auto) 4.1 % (0.0-7.0); Hematocrit 34.1 % (41.0-53.0); Hemoglobin 11.5 g/dL (13.5-17.5); Mean Corpuscular Hemoglobin 30.7 pg (28.0-32.0); Mean Corpuscular Hgb Conc. 33.8 g/dL (32.0-36.0); Mean Corpuscular Volume 90.9 fL (80.0-100.0); Neutrophils # (auto) 3.1 10 ^3/uL (1.6-8.6); Neutrophils % (auto) 53.3 % (37.0-80.0); Nucleated Red Blood Cells % 0.1 %; Red Blood Cells 3.75 10^6/uL (4.5-5.90); Red Cell Distribution Width 14.7 % (11.8-14.3); White Blood Cell 5.8 10^3/uL (4.4-10.8)
[2021-12-27 07:54] LABS: Lymphocytes % (auto) 24.7 % (10.0-50.0); Monocytes % (auto) 17.1 % (0.0-12.0)
[2021-12-27 07:55] LABS: Lymphocytes # (auto) 1.5 10 ^3/uL (0.4-5.4); Monocytes # (auto) 0.9 10 ^3/uL (0-1.3)
[2021-12-27 08:05] LABS: Potassium 2.8 mmol/L (3.5-5.1)
[2021-12-27] MEDS: ACCU-CHEK COMFORT CURVE STRIP VI SCH ×4 (09:03→22:33)
[2021-12-27] MEDS: InsuLIN REG 1unit/0.01ml Soln (100units/ml) SC SCH ×4 (09:03→22:36)
[2021-12-27] MEDS ORDERED: PATIENTS OWN MEDICATION (Clopidogrel Bisulfate (Clopidogrel) 75 MG) PO SCH (10:00)
[2021-12-27] MEDS: ASPirin-EC 81 mg tab PO SCH (12:24)
[2021-12-27] MEDS: ENOXAPARIN SOD 40 MG/0.4 ML SYRINGE SC SCH (12:24)
[2021-12-27] MEDS: METOPROLOL TARTRATE 25 MG TAB PO SCH ×2 (12:24→22:33)
[2021-12-27 16:54] VITALS: BP 144/62
[2021-12-27] MEDS: TAMSULOSIN HYDROCHLORIDE 0.4 MG CAP PO SCH (18:17)
[2021-12-27 22:00] VITALS: BP 132/77
[2021-12-27] MEDS: ATORVASTATIN 20 MG TAB PO SCH (22:32)
[2021-12-28 05:00] VITALS: BP 164/65
[2021-12-28] MEDS: InsuLIN REG 1unit/0.01ml Soln (100units/ml) SC SCH ×4 (06:21→21:36)
[2021-12-28] MEDS: ACCU-CHEK COMFORT CURVE STRIP VI SCH ×4 (06:23→21:35)
[2021-12-28 07:55] LABS: BUN/Creatinine Ratio 11.6; Calcium 7.3 mg/dL (8.5-10.1)
[2021-12-28 08:00] VITALS: BP 165/72
[2021-12-28 08:07] LABS: Potassium 2.9 mmol/L (3.5-5.1)
[2021-12-28] MEDS ORDERED: POTASSIUM CHL 20 Meq TABLET PO ONE (09:30)
[2021-12-28] MEDS: ENOXAPARIN SOD 40 MG/0.4 ML SYRINGE SC SCH (10:00)
[2021-12-28] MEDS: ASPirin-EC 81 mg tab PO SCH (10:50)
[2021-12-28] MEDS: METOPROLOL TARTRATE 25 MG TAB PO SCH ×2 (10:50→21:16)
[2021-12-28] MEDS: POTASSIUM CHL 20MEQ/100ML 100 ML IV SCH ×2 (10:51→12:51)
[2021-12-28] MEDS: CLOPIDOGREL BISULFATE 75 MG TAB PO SCH (10:51)
[2021-12-28 12:00] VITALS: BP 155/60
[2021-12-28 13:39] LABS: Amphetamine Screen, Urine NEGATIVE (NEGATIVE); Barbiturate Scree,Urine NEGATIVE (NEGATIVE); Benzodiazephine Screen, Urine NEGATIVE (NEGATIVE); Cannabinoid Screen, Urine NEGATIVE (NEGATIVE); Cocaine Screen, Urine NEGATIVE (NEGATIVE); Opiate Scree,Urine NEGATIVE (NEGATIVE); Phencyclidine Screen, Urine NEGATIVE (NEGATIVE)
[2021-12-28 13:44] LABS: Alcohol, Urine < 3.0 mg/dL (0-10)
[2021-12-28 15:46] LABS: Calcium 7.8 mg/dL (8.5-10.1); Potassium 3.9 mmol/L (3.5-5.1)
[2021-12-28 15:49] LABS: BUN/Creatinine Ratio 8.2
[2021-12-28 16:04] LABS: Urine Bacteria NONE SEEN /hpf (None Seen); Urine Blood Negative /uL (Negative); Urine Specific Gravity 1.005 (1.001-1.035); Urine WBC 5 /hpf (0 - 3)
[2021-12-28 16:16] VITALS: BP 158/68
[2021-12-28] MEDS ORDERED: levoFLOXacin 500 MG TAB PO SCH (16:45)
[2021-12-28] MEDS ORDERED: LEVO-28 PO (17:50)
[2021-12-28] MEDS: TAMSULOSIN HYDROCHLORIDE 0.4 MG CAP PO SCH (17:53)
[2021-12-28] MEDS ORDERED: cefTRIAXone 1GM/50ML D5W 50 ML IV SCH (20:00)
[2021-12-28] MEDS: ATORVASTATIN 20 MG TAB PO SCH (21:15)
[2021-12-28 22:00] VITALS: BP 161/61
[2021-12-29] MEDS ORDERED: CEPH-509 PO (02:06)
[2021-12-29 05:00] VITALS: BP 134/47
[2021-12-29] MEDS: InsuLIN REG 1unit/0.01ml Soln (100units/ml) SC SCH ×2 (06:14→11:30)
[2021-12-29] MEDS: ACCU-CHEK COMFORT CURVE STRIP VI SCH ×2 (06:15→11:29)
[2021-12-29] MEDS: CEPHALEXIN 250 MG CAP PO SCH ×2 (06:15→12:30)
[2021-12-29 08:00] VITALS: BP 121/51
[2021-12-29] MEDS: ASPirin-EC 81 mg tab PO SCH (08:53)
[2021-12-29] MEDS: CLOPIDOGREL BISULFATE 75 MG TAB PO SCH (08:53)
[2021-12-29] MEDS: METOPROLOL TARTRATE 25 MG TAB PO SCH (08:54)
[2021-12-29] MEDS: ENOXAPARIN SOD 40 MG/0.4 ML SYRINGE SC SCH (08:54)
[2021-12-29 12:00] VITALS: BP 136/58
== END 2021-12-29 15:00 | disposition home health service (06) | DRG 52 ==
LOC: EDBD 21:16 → ER 21:16 → TELE 12-27 04:42 → TELE-WESTW 12-27 15:58
PROVIDERS: ADMIT Hospitalist; ATTEND Hospitalist
DX: G92.8 Other toxic encephalopathy (principal); E11.40 Type 2 diabetes mellitus with diabetic neuropathy, unspecified; F03.90 Unspecified dementia, unspecified severity, without behavioral disturbance, psychotic disturbance, mood disturbance, and anxiety; R62.7 Adult failure to thrive; I25.10 Atherosclerotic heart disease of native coronary artery without angina pectoris; Z20.822 Contact with and (suspected) exposure to COVID-19; E78.5 Hyperlipidemia, unspecified; I10 Essential (primary) hypertension; N40.0 Benign prostatic hyperplasia without lower urinary tract symptoms; Z83.3 Family history of diabetes mellitus; Z95.1 Presence of aortocoronary bypass graft; Z82.49 Family history of ischemic heart disease and other diseases of the circulatory system; N39.0 Urinary tract infection, site not specified; Z79.84 Long term (current) use of oral hypoglycemic drugs
CPT/HCPCS: 36415; 70450; 71045; 80048; 80053; 80307; 81001; 82140; 82962; 83605; 83880; 84484; 85007; 85025; 85027; 93005; 96360; 96361; 96372; 97163; G0378; J0696; J1815; J3480

== ENCOUNTER 2022-01-22 19:47 | Inpatient (IN) | payer MEDICAID ==
[~2022-01-22] VITALS: Ht 160 cm; Wt 52.6 kg
[~2022-01-22 19:47] MED LIST changes: +CEPH-509 PO; -LEVO500T31 PO; -VANC250C4 PO
[2022-01-22 22:56] LABS: Basophils # (auto) 0 10 ^3/uL (0-0.2); Basophils % (auto) 0.9 % (0.0-2.0); Eosinophils # (auto) 0.1 10 ^3/uL (0-0.8); Eosinophils % (auto) 2.4 % (0.0-7.0); Hematocrit 28.3 % (41.0-53.0); Hemoglobin 9.6 g/dL (13.5-17.5); Lymphocytes # (auto) 1.2 10 ^3/uL (0.4-5.4); Lymphocytes % (auto) 27.5 % (10.0-50.0); Mean Corpuscular Hemoglobin 30.7 pg (28.0-32.0); Mean Corpuscular Hgb Conc. 33.8 g/dL (32.0-36.0); Mean Corpuscular Volume 90.7 fL (80.0-100.0); Monocytes # (auto) 0.4 10 ^3/uL (0-1.3); Monocytes % (auto) 9.9 % (0.0-12.0); Neutrophils # (auto) 2.5 10 ^3/uL (1.6-8.6); Neutrophils % (auto) 59.3 % (37.0-80.0); Nucleated Red Blood Cells % 0.1 %; Red Blood Cells 3.12 10^6/uL (4.5-5.90); Red Cell Distribution Width 16.5 % (11.8-14.3); White Blood Cell 4.2 10^3/uL (4.4-10.8)
[2022-01-22 23:22] LABS: Albumin 3.2 g/dL (3.4-5.0); Potassium 4.1 mmol/L (3.5-5.1)
[2022-01-22 23:24] LABS: BUN/Creatinine Ratio 15.2
[2022-01-22 23:27] LABS: Bilirubin, Total 0.4 mg/dL (0.2-1.0); Total Protein 6.5 g/dL (6.4-8.2)
[2022-01-23] MEDS ORDERED: AZITHROMYCIN 500MG/ 250ML 250 ML IV ONE (03:00)
[2022-01-23] MEDS ORDERED: MORPHINE SULFATE INJ 2 MG/ml SYRG IV PRN (03:00)
[2022-01-23] MEDS ORDERED: ACETAMINOPHEN 325 MG TAB PO PRN (03:00)
[2022-01-23] MEDS ORDERED: ONDANSETRON HCL 4 MG/2 ML VIAL IV PRN (03:00)
[2022-01-23] MEDS ORDERED: HYDROcodone-ACET 5/325MG TAB PO PRN (03:00)
[2022-01-23] MEDS ORDERED: NITROGLYCERIN 0.4 MG SL TAB SL PRN (03:00)
[2022-01-23] MEDS ORDERED: DEXTROSE (50%) 50ML SYRG IV PRN (03:00)
[2022-01-23] MEDS: GABAPENTIN 100 MG CAP PO SCH ×3 (06:15→21:02)
[2022-01-23] MEDS: ACCU-CHEK COMFORT CURVE STRIP VI SCH ×4 (06:23→21:26)
[2022-01-23] MEDS: InsuLIN REG 1unit/0.01ml Soln (100units/ml) SC SCH ×4 (06:50→21:21)
[2022-01-23 08:08] LABS: Calcium 8.4 mg/dL (8.5-10.1); Magnesium 1.1 mg/dL (1.6-2.6)
[2022-01-23 08:23] LABS: INR 1.08 (0.9-1.15); Partial Thromboplastin Time 27.1 sec (24.6-33.4)
[2022-01-23] MEDS ORDERED: ENOXAPARIN SOD 40 MG/0.4 ML SYRINGE SC SCH (10:00)
[2022-01-23] MEDS: ZINC SULFATE 220mg CAP or TAB PO SCH (10:29)
[2022-01-23] MEDS: MULTIPLE VITAMIN TAB PO SCH (10:29)
[2022-01-23] MEDS: ASPirin 81 mg TAB PO SCH (10:29)
[2022-01-23] MEDS: CLOPIDOGREL BISULFATE 75 MG TAB PO SCH (10:30)
[2022-01-23] MEDS: PANTOPRAZOLE 40 MG TAB PO SCH (10:30)
[2022-01-23] MEDS: ASCORBIC ACID 500 MG TAB PO SCH ×2 (10:30→21:03)
[2022-01-23] MEDS: METOPROLOL SUCCINATE XL 50 MG TAB PO SCH (10:31)
[2022-01-23 15:27] VITALS: BP 127/57
[2022-01-23] MEDS: TAMSULOSIN HYDROCHLORIDE 0.4 MG CAP PO SCH (18:00)
[2022-01-23] MEDS ORDERED: ERGOCALCIFEROL 50,000 UNIT(1.25MG) CAP PO SCH (18:15)
[2022-01-23] MEDS: MAGNESIUM SULFATE 1GM/100ML 100 ML IV SCH ×3 (21:01→23:36)
[2022-01-23] MEDS: MAGNESIUM OXIDE 400 MG TAB PO SCH (21:02)
[2022-01-23] MEDS: ATORVASTATIN 20 MG TAB PO SCH (21:02)
[2022-01-23 22:00] VITALS: BP 138/57
[2022-01-24 05:00] VITALS: BP 134/58
[2022-01-24 05:45] LABS: Basophils # (auto) 0 10 ^3/uL (0-0.2); Basophils % (auto) 0.8 % (0.0-2.0); Eosinophils # (auto) 0.2 10 ^3/uL (0-0.8); Eosinophils % (auto) 3.5 % (0.0-7.0); Hematocrit 27.9 % (41.0-53.0); Hemoglobin 9.7 g/dL (13.5-17.5); Lymphocytes # (auto) 1.3 10 ^3/uL (0.4-5.4); Lymphocytes % (auto) 27.9 % (10.0-50.0); Mean Corpuscular Hemoglobin 30.8 pg (28.0-32.0); Mean Corpuscular Hgb Conc. 34.7 g/dL (32.0-36.0); Mean Corpuscular Volume 88.7 fL (80.0-100.0); Monocytes # (auto) 0.5 10 ^3/uL (0-1.3); Monocytes % (auto) 11.3 % (0.0-12.0); Neutrophils # (auto) 2.6 10 ^3/uL (1.6-8.6); Neutrophils % (auto) 56.5 % (37.0-80.0); Red Blood Cells 3.14 10^6/uL (4.5-5.90); Red Cell Distribution Width 16.7 % (11.8-14.3); White Blood Cell 4.6 10^3/uL (4.4-10.8)
[2022-01-24 05:53] LABS: Albumin 2.8 g/dL (3.4-5.0); BUN/Creatinine Ratio 16.7; Calcium 8.1 mg/dL (8.5-10.1); Magnesium 1.9 mg/dL (1.6-2.6)
[2022-01-24 06:01] LABS: Bilirubin, Total 0.4 mg/dL (0.2-1.0); Phosphorus 1.9 mg/dL (2.5-4.90); Total Protein 5.6 g/dL (6.4-8.2)
[2022-01-24] MEDS: ACCU-CHEK COMFORT CURVE STRIP VI SCH ×4 (06:20→21:19)
[2022-01-24] MEDS: GABAPENTIN 100 MG CAP PO SCH ×3 (06:20→21:15)
[2022-01-24] MEDS: InsuLIN REG 1unit/0.01ml Soln (100units/ml) SC SCH ×4 (06:20→21:19)
[2022-01-24 08:00] VITALS: BP 144/66
[2022-01-24] MEDS: PANTOPRAZOLE 40 MG TAB PO SCH (10:32)
[2022-01-24] MEDS: AZITHROMYCIN 500MG/ 250ML 250 ML IV SCH (10:32)
[2022-01-24] MEDS: ASCORBIC ACID 500 MG TAB PO SCH ×2 (10:32→21:14)
[2022-01-24] MEDS: METOPROLOL SUCCINATE XL 50 MG TAB PO SCH (10:33)
[2022-01-24] MEDS: MAGNESIUM OXIDE 400 MG TAB PO SCH ×2 (10:34→21:14)
[2022-01-24] MEDS: CLOPIDOGREL BISULFATE 75 MG TAB PO SCH (10:34)
[2022-01-24] MEDS: ZINC SULFATE 220mg CAP or TAB PO SCH (10:34)
[2022-01-24] MEDS: MULTIPLE VITAMIN TAB PO SCH (10:34)
[2022-01-24] MEDS: ASPirin 81 mg TAB PO SCH (10:34)
[2022-01-24] MEDS: ENOXAPARIN SOD 30 MG/0.3 ML SYRINGE SC SCH (10:34)
[2022-01-24 12:00] VITALS: BP 158/64
[2022-01-24] MEDS ORDERED: SODIUM PHOSPHATES 24 MEQ in SODIUM CHL 0.9% 100 ML IV ONE (14:00)
[2022-01-24 16:00] VITALS: BP 135/56
[2022-01-24] MEDS: TAMSULOSIN HYDROCHLORIDE 0.4 MG CAP PO SCH (18:27)
[2022-01-24] MEDS: ATORVASTATIN 20 MG TAB PO SCH (21:15)
[2022-01-24 21:37] VITALS: BP 115/50
[2022-01-25 04:51] VITALS: BP 139/58
[2022-01-25] MEDS: ACCU-CHEK COMFORT CURVE STRIP VI SCH ×2 (05:36→11:28)
[2022-01-25] MEDS: InsuLIN REG 1unit/0.01ml Soln (100units/ml) SC SCH ×2 (05:36→11:29)
[2022-01-25] MEDS: GABAPENTIN 100 MG CAP PO SCH ×2 (05:36→13:16)
[2022-01-25 08:00] VITALS: BP 156/66
[2022-01-25] MEDS: AZITHROMYCIN 500MG/ 250ML 250 ML IV SCH (10:00)
[2022-01-25] MEDS: ASPirin 81 mg TAB PO SCH (10:00)
[2022-01-25] MEDS: PANTOPRAZOLE 40 MG TAB PO SCH (10:01)
[2022-01-25] MEDS: MULTIPLE VITAMIN TAB PO SCH (10:01)
[2022-01-25] MEDS: MAGNESIUM OXIDE 400 MG TAB PO SCH (10:01)
[2022-01-25] MEDS: ZINC SULFATE 220mg CAP or TAB PO SCH (10:01)
[2022-01-25] MEDS: CLOPIDOGREL BISULFATE 75 MG TAB PO SCH (10:01)
[2022-01-25] MEDS: METOPROLOL SUCCINATE XL 50 MG TAB PO SCH (10:02)
[2022-01-25] MEDS: ENOXAPARIN SOD 30 MG/0.3 ML SYRINGE SC SCH (10:02)
[2022-01-25] MEDS: ASCORBIC ACID 500 MG TAB PO SCH (10:02)
[2022-01-25 12:00] VITALS: BP 144/50
[2022-01-25] MEDS ORDERED: ERGO1CAP23 PO (13:04)
[2022-01-25] MEDS ORDERED: AZITTAB PO (13:04)
[2022-01-25] MEDS ORDERED: ZINC220C10 PO (13:04)
== END 2022-01-25 16:39 | disposition home health service (06) | DRG 137 ==
LOC: ER 19:47 → TELE 01-23 02:51 → TELE-CENTR 01-23 15:31
PROVIDERS: ADMIT Nurse Practitioner; ATTEND Internal Medicine
DX: U07.1 COVID-19 (principal); J12.82 Pneumonia due to coronavirus disease 2019; N17.9 Acute kidney failure, unspecified; E44.0 Moderate protein-calorie malnutrition; L97.529 Non-pressure chronic ulcer of other part of left foot with unspecified severity; E11.22 Type 2 diabetes mellitus with diabetic chronic kidney disease; L03.90 Cellulitis, unspecified; E11.40 Type 2 diabetes mellitus with diabetic neuropathy, unspecified; E11.51 Type 2 diabetes mellitus with diabetic peripheral angiopathy without gangrene; E11.621 Type 2 diabetes mellitus with foot ulcer; N18.2 Chronic kidney disease, stage 2 (mild); I12.9 Hypertensive chronic kidney disease with stage 1 through stage 4 chronic kidney disease, or unspecified chronic kidney disease; F03.90 Unspecified dementia, unspecified severity, without behavioral disturbance, psychotic disturbance, mood disturbance, and anxiety; I25.10 Atherosclerotic heart disease of native coronary artery without angina pectoris; Z95.1 Presence of aortocoronary bypass graft; Z79.01 Long term (current) use of anticoagulants; Z79.899 Other long term (current) drug therapy; Z79.82 Long term (current) use of aspirin; Z80.9 Family history of malignant neoplasm, unspecified; Z82.49 Family history of ischemic heart disease and other diseases of the circulatory system; Z68.20 Body mass index [BMI] 20.0-20.9, adult; Z79.84 Long term (current) use of oral hypoglycemic drugs
CPT/HCPCS: 36415; 71045; 80048; 80053; 82306; 82728; 82962; 83036; 83615; 83735; 84100; 84484; 85025; 85379; 85610; 85730; 96365; 96372; G0378; J1815